=== PATIENT | male | born 1965 | race Caucasian/White ===

== ENCOUNTER → 2017-08-12 | Outpatient (CLI) | payer BC ==
[~2017-08-12] MED LIST: BENICAR20 MG PO; BYSTOLIC10 MG PO; CLARITIN10 MG PO; CYCLOBENZAPRINE5 MG PO; LEVOTHYROXINE25 MCG PO; PEPCID20 MG PO; TOPROL XL100 MG PO; ULTRAM50 MG PO; VASCEPA PO; Z.0.TOPROL XL50 MG
--- NOTE | 2017-08-12 14:04 | Diagnostic Imaging Report ---
PROCEDURE:CHEST 2 VIEWS TECHNIQUE:Renal carcinoma restaging INDICATION:PA and lateral views chest totaling 3 radiographs COMPARISON:None. FINDINGS: The lungs are clear and symmetrically inflated. No pleural effusions. Normal heart size, mediastinal contour, and pulmonary vasculature. Intact skeleton. No lytic or blastic lesions. CONCLUSION: No acute abnormality. Dictated by: Art Holden M.D. on 08/12/2017 at 14:07 Electronically approved by: Art Holden M.D. on 08/12/2017 at 14:07
--- NOTE | 2017-08-12 14:22 | Diagnostic Imaging Report ---
PROCEDURE:US RETROPERITONEAL ( KIDNEY ). COMPARISON:[facility], CT, CT ABDOMEN/PELVIS W, 12/19/2011, 19:25. INDICATIONS:Renal cancer follow. TECHNIQUE: Roberto scale color Doppler ultrasound kidneys FINDINGS: Right: 11.8 x 5.6 x 6 cm. Cortical thickness 1.7 cm. Left: 8.5 x 6 x 4.9 cm. Cortical thickness 1.8 cm. Both kidneys demonstrate normal parenchymal echogenicity. No conspicuous mass, stone or cyst within the right kidney. 2.4 x 1.6 x 1.6 cm nodule at the inferior medial aspect of the left kidney. This is isoechoic to adjacent kidney with minimal internal vasculature. Survey views of the urinary bladder are normal. Patent ureters. Prostate volume: 36 mL. CONCLUSION: Interval development of a 2.4 cm nodule at the inferior medial aspect of the left kidney. Renal protocol CT is recommended for characterization given left inferior partial nephrectomy for renal cell carcinoma. While this may represent chronic postoperative sequela it was not definitively conspicuous at the prior study. Dictated by: Art Holden M.D. on 08/12/2017 at 14:25 Electronically approved by: Art Holden M.D. on 08/12/2017 at 14:25
== END | disposition home or self-care (01) ==
LOC: US 13:00
PROVIDERS: ATTEND Urology
DX: C64.2 Malignant neoplasm of left kidney, except renal pelvis (principal); N28.89 Other specified disorders of kidney and ureter
CPT/HCPCS: 71046; 76770

== ENCOUNTER → 2017-08-21 | Outpatient (CLI) | payer BC ==
[~2017-08-21] MED LIST changes: +IOPAMIDOL 370 MG/ML 200 ML INFUS..BTL INJ ONE; +SODIUM CHLORIDE 0.9% 50ML 50 ML ONE
[2017-08-21 11:23] LABS: BLOOD UREA NITROGEN 19 mg/dL (7-26); BUN/CREATININE RATIO 16 (6-25); CREATININE, SERUM 1.16 mg/dL (0.72-1.25); EST GLOMERULAR FILTRATION RATE > 60 ML/MIN (60-)
--- NOTE | 2017-08-21 12:38 | Diagnostic Imaging Report ---
PROCEDURE: CT ABDOMEN \T\ PELVIS W/WO CONTRAST TECHNIQUE: The abdomen and pelvis were scanned utilizing a multidetector helical scanner from the diaphragm to the lesser trochanter before and after the IV administration of 100 cc of Isovue 370. Coronal and sagittal multiplanar reformations were obtained. Renal mass protocol was performed. COMPARISON: Renal ultrasound 08/12/2017, CT 09/15/2012 INDICATIONS: RENAL CANCER FINDINGS: LOWER THORAX: Normal. HEPATOBILIARY: Left hepatic 2 cm cyst. No focal hepatic lesions. No biliary ductal dilatation. SPLEEN: No splenomegaly. PANCREAS: No focal masses or ductal dilatation. ADRENALS: No adrenal nodules. KIDNEYS/URETERS: Partial left nephrectomy. A 1.9 cm lesion in the inferior pole in the left kidney (axial 5 minute delay, series 6 image 39; venous coronal series 502 image 82; delay coronal series 801 image 83) shows enhancement and washout. Lesion extends to the renal sinus fat. No evidence of extension to Gerota's fascia or renal vein involvement. Tiny hypodensity in the posterior superior pole of the right kidney is too small to characterize. No hydronephrosis or stones in either kidney. No filling defects within the opacified portions of the urinary collecting system on delayed phase. PELVIC ORGANS/BLADDER: Unremarkable. PERITONEUM / RETROPERITONEUM: No free air or fluid. LYMPH NODES: No lymphadenopathy. VESSELS: Mild atherosclerotic calcifications. No abdominal aortic aneurysm. Two right renal arteries. One left renal artery. GI TRACT: No distention or wall thickening. Small hiatal hernia. Few colonic diverticula without evidence of diverticulitis. BONES AND SOFT TISSUES: Postsurgical changes in the left flank related to partial nephrectomy. No aggressive osseous lesions. IMPRESSION: 1. Left inferior pole 1.9 cm lesion is concerning for renal cell carcinoma. 2. No evidence of metastatic disease in the abdomen and pelvis. Dictated by: Tramaine Stoner M.D. on 08/21/2017 at 12:40 Electronically approved by: Tramaine Stoner M.D. on 08/21/2017 at 12:40
== END ==
LOC: CT 10:38
PROVIDERS: ATTEND Urology
DX: C64.9 Malignant neoplasm of unspecified kidney, except renal pelvis (principal)
CPT/HCPCS: 36415; 74178; 82565; 84520; Q9967

== ENCOUNTER → 2018-01-20 | Outpatient (CLI) | payer BC ==
[~2018-01-20] MED LIST changes: +BACTRIM DS TAB1 EACH PO; +DIOVAN HCT 3201 EACH; +FENTANYL CITRATE/PF 100MCG/2 ML INJ ONE; +GELATIN SPONGE 12-7MM ONE; -IOPAMIDOL 370 MG/ML 200 ML INFUS..BTL INJ ONE; +LEVOTHYROXINE50 MCG PO; +LIDOCAINE HCL 1% LOCAL INJ 20 ML VIAL ONE; +MIDAZOLAM HCL 2 MG/2 ML VIAL ONE; +PENICILLIN VK PO; +SODIUM CHLORIDE 0.9% 500ML 500 ML ONE; -SODIUM CHLORIDE 0.9% 50ML 50 ML ONE; +TAMSULOSIN HCL0.4 MG; +TESTOSTERO200 MG/1 M; +TYLENOL WITH C1 EACH PO; +VASCEPA 1 GM PO
--- NOTE | 2018-01-20 13:39 | Diagnostic Imaging Report ---
This report includes an Addendum and supersedes previous reports for this exam. PROCEDURE: CT GUIDED NEEDLE PLACEMENT COMPARISON: [facility], CT, CT ABDOMEN/PELVIS WOW, 08/21/2017, 11:34. INDICATIONS: RENAL MASS BIOPSY LEFT; HX OF RENAL CELL CA MEDICATIONS:5 ml 1% lidocaine DLP: 2264.58 mGy-cm EBL: < 5 ml SPECIMEN: Given to pathology DESCRIPTION OF PROCEDURE: Informed consent was obtained. The patient's left back was prepped and draped in the standard sterile fashion. Multiple CT images were used to localize the abnormality. The skin was anesthetized with lidocaine. Using CT guidance, a 19 gauge 12 cm long guiding needle was placed to the edge of the lesion involving the lower pole of the left kidney. A single FNA utilizing a 20 gauge Chiba needle was accomplished and 4 core biopsies utilizing 20 gauge 1 cm throw core biopsy gun. Four more biopsies were performed utilizing 20 gauge 2 cm throw biopsy gun. The samples were given to pathology in attendance who deemed the specimens adequate. Prior to removal of the guiding needle Gelfoam slurry was injected to aid in hemostasis. The patient tolerated the procedure well without evidence of complication. CONCLUSION: Successful CT guided FNA and core biopsy of a left lower pole suspicious renal lesion performed without complication. Jacek Arnett D.O. Dictated by: Jacek Arnett D.O. on 01/20/2018 at 13:49 Electronically approved by: Jacek Arnett D.O. on 01/20/2018 at 13:49 ADDENDUM: Active dose reduction techniques were utilized. Jacek Arnett D.O. Dictated by: Jacek Arnett D.O. on 03/03/2018 at 10:24 Electronically approved by: Jacek Arnett D.O. on 03/03/2018 at 10:24
== END ==
LOC: CT 08:59
PROVIDERS: ATTEND Urology
DX: C64.2 Malignant neoplasm of left kidney, except renal pelvis (principal)
CPT/HCPCS: 10022; 50200; 77012; 88172; 88173; 88305; J2001; J2250; J7040; 88112; 99152; 99153

== ENCOUNTER 2018-02-03 13:40 | Inpatient (IN) | payer BC ==
[2018-01-31 16:32] LABS: BASOPHILS # (AUTO) 0.1 (0.0-0.1); EOSINOPHILS # (AUTO) 0.3 (0.0-0.4); EOSINOPHILS % 2.3 % (0.0-6.0); HEMATOCRIT 43.6 % (38.2-49.6); HEMOGLOBIN 14.4 g/dL (14.0-18.0); LYMPHOCYTES # (AUTO) 2.3 (1.0-3.2); LYMPHOCYTES % 21.2 % (18.0-39.1); MEAN CORPUSCULAR HEMOGLOBIN 27.5 pg (28-32); MEAN CORPUSCULAR VOLUME 83.4 fL (81-99); MONOCYTES # (AUTO) 0.9 (0.2-0.8); MONOCYTES % 7.9 % (4.4-11.3); NEUTROPHILS # (AUTO) 7.3 (2.1-6.9); NEUTROPHILS % 66.1 % (38.7-80.0); PLATELET COUNT 230 x10e3/uL (140-360); RED BLOOD COUNT 5.23 x10e6/uL (4.3-5.7); RED CELL DISTRIBUTION WIDTH 15.4 % (11.7-14.4)
[2018-01-31 16:47] LABS: ALANINE AMINOTRANSFERASE 28 IU/L (0-55); ALBUMIN 3.7 g/dL (3.5-5.0); ALBUMIN/GLOBULIN RATIO 0.9 (0.8-2.0); ALKALINE PHOSPHATASE 61 IU/L (40-150); ANION GAP 15.1 mmol/L (8-16); BLOOD UREA NITROGEN 14 mg/dL (7-26); BUN/CREATININE RATIO 14 (6-25); CALCIUM 9.8 mg/dL (8.4-10.2); CARBON DIOXIDE 24 mmol/L (22-29); CHLORIDE 101 mmol/L (98-107); CREATININE, SERUM 1.03 mg/dL (0.72-1.25); EST GLOMERULAR FILTRATION RATE > 60 ML/MIN (60-); GLUCOSE 103 mg/dL (74-118); POTASSIUM 4.1 mmol/L (3.5-5.1); SODIUM 136 mmol/L (136-145)
--- NOTE | 2018-01-31 16:48 | Diagnostic Imaging Report ---
EXAMINATION: CHEST 2 VIEWS COMPARISON: Chest radiograph 08/12/17. FINDINGS: TUBES and LINES: None. LUNGS: Lungs are well inflated. Lungs are clear. There is no evidence of pneumonia or pulmonary edema. PLEURA: No pleural effusion or pneumothorax. HEART AND MEDIASTINUM: The cardiomediastinal silhouette is unremarkable. BONES AND SOFT TISSUES: No acute osseous lesion. Soft tissues are unremarkable. UPPER ABDOMEN: No free air under the diaphragm. IMPRESSION: No acute radiographic abnormality. Signed by: Dr. Uvaldo Mortensen MD on 01/31/2018 4:44 PM
[~2018-02-03] VITALS: Ht 185.4 cm; Wt 147.4 kg
[~2018-02-03 13:40] MED LIST changes: -BACTRIM DS TAB1 EACH PO; -FENTANYL CITRATE/PF 100MCG/2 ML INJ ONE; -GELATIN SPONGE 12-7MM ONE; -LIDOCAINE HCL 1% LOCAL INJ 20 ML VIAL ONE; +MANNITOL 25% 12.5GM/50ML 50 ML ONE; -MIDAZOLAM HCL 2 MG/2 ML VIAL ONE; -PENICILLIN VK PO; -SODIUM CHLORIDE 0.9% 500ML 500 ML ONE; -TYLENOL WITH C1 EACH PO
--- OUTSIDE RECORDS SUMMARY | 2018-02-03 13:42 | XMS REPORT ---
Author Author [facility] Address Unknown Phone Unavailable Care Team Providers Care Hydrology Professor Name Role Phone BUCK OLIVA Unavailable Unavailable Problems This patient has no known problems. Allergies, Adverse Reactions, Alerts This patient has no known allergies or adverse reactions. Medications This patient has no known medications. Results Test Description Test Time Test Comments Text Results Atomic Results Result Comments CHEST 2 VIEWS 2018-01-31 16:42:00 [place] [address] Patient Name: RHODA JUARES MR #: [id number] : 1965 Age/Sex: 52/M Req #: [id number] Adm Physician: Ordered by: BUCK OLIVA MD Report #: [id number] Location: OR Room/Bed: Procedure: [id number] DX/CHEST 2 VIEWS Exam Date: 01/31/18 Exam Time: 1627 REPORT STATUS: Signed EXAMINATION: CHEST 2 VIEWS COMPARISON: Chest radio graph 08/12/17. FINDINGS: TUBES and LINES: None. LUNGS: Lungs are well inflated. Lungs are clear. There is no evidence of pneumonia or pulmonary edema. PLEURA: No pleural effusion or pneumothorax. HEART AND MEDIASTINUM: The cardiomediastinal silhouette is unremarkable. BONES AND SOFT TISSUES: No acute osseous lesion. Soft tissues are unremarkable. UPPER ABDOMEN: No free air under the diaphragm. IMPRESSION: No acute radiographic abnormality. Signed by: Dr. Skylar Young MD on 01/31/2018 4:44 PM Dictated By: SKYLAR YOUNG MD 43 Transcribed By: MNAUEL on 01/31/181643 COPY TO: BUCK OLIVA MD BIOPSY RENAL 2018-01-20 13:49:00 [place] [address] Patient Name: RHODA JUARES MR #: [id number] : 1965 Age/Sex: 52/M Req #: [id number] Adm Physician: Ordered by: BUCK OLIVA MD Report #: [id number] Location: CT Room/Bed: Procedure: [id number] IR/BIOPSY RENAL Exam Date: Exam Time: REPORT STATUS: Signed PROCEDURE: CT GUIDED NEEDLE PLACEMENT COMPARISON: [facility], CT, CT ABDOMEN/PELVIS WOW, 08/21/2017, 11:34. INDICATIONS: RENAL MASS BIOPSY LEFT; HX OF RENAL CELL CA MEDICATIONS: 5 ml 1% lidocaine DLP: 2264.58 mGy-cm EBL: < 5 ml SPECIMEN: Given to pathology DESCRIPTION OF PROCEDURE: Informed consent was obtained. The patient's left back was prepped and draped in the standard sterile fashion. Multiple CT images were used to localize the abnormality. The skin was anesthetized with lidocaine. Using CT guidance, a 19 gauge 12 cm long guiding needle was placed to the edge of the lesion involving the lower pole of the left kidney. A single FNA utilizing a 20 gauge Chiba needle was accomplished and 4 core biopsies utilizing 20 gauge 1 cm throw core biopsy gun. Four more biopsies were performed utilizing 20 gauge 2 cm throw biopsy gun. The samples were given to pathology in attendance who deemed the specimens adequate. Prior to removal of the guiding needle Gelfoam slurry was injected to aid in hemostasis. The patient tolerated the procedure well without evidence of complication. CONCLUSION: Successful CT guided FNA and core biopsy of a left lower pole suspicious renal lesion performed without complication. Lola Arnett D.O. Dictated by: Lola Arnett D.O. on 01/20/2018 at 13:49 Electronically approved by: Lola Arnett D.O. on 01/20/2018 at 13:49 Dictated By: LOLA ARNETT DO 1349 Transcribed By: JING on 01/20/18 1349 COPY TO: BUCK OLIVA MD CT GUIDED BIOPSY/ASPIR/INJ/BLADE 2018-01-20 13:49:00 [place] [address] Patient Name: RHODA JUARES MR #: [id number] : 1965 Age/Sex: 52/M Req #: [id number] Adm Physician: Ordered by: BUCK OLIVA MD Report #: [id number] Location: [place] Room/Bed: Procedure: [id number] CT/CT GUIDED BIOPSY/ASPIR/INJ/BLADE Exam Date: Exam Time: REPORT STATUS: Signed PROCEDURE: CT GUIDED NEEDLE PLACEMENT COMPARISON: [facility], CT, CT ABDOMEN/PELVIS WOW, 08/21/2017, 11:34. INDICATIONS: RENAL MASS BIOPSY LEFT; HX OF RENAL CELL CA MEDICATIONS: 5 ml 1% lidocaine DLP: 2264.58 mGy-cm EBL: < 5 ml SPECIMEN: Given to pathology DESCRIPTION OF PROCEDURE: Informed consent was obtained. The patient's left back was prepped and draped in the standard sterile fashion. Multiple CT images were used to localize the abnormality. The skin was anesthetized with lidocaine. Using CT guidance, a 19 gauge 12 cm long guiding needle was placed to the edge of the lesion involving the lower pole of the left kidney. A single FNA utilizing a 20 gauge Chiba needle was accomplished and 4 core biopsies utilizing 20 gauge 1 cm throw core biopsy gun. Four more biopsies were performed utilizing 20 gauge 2 cm throw biopsy gun. The samples were given to pathology in attendance who deemed the specimens adequate. Prior to removal of the guiding needle Gelfoam slurry was injected to aid in hemostasis. The patient tolerated the procedure well without evidence of complication. CONCLUSION: Successful CT guided FNA and core biopsy of a left lower pole suspicious renal lesion performed without complication. Lola Arnett D.O. Dictated by: Lola Arnett D.O. on 01/20/2018 at 13: 49 Electronically approved by: Lola Arnett D.O. on 01/20/2018 at 13:49 Dictated By: LOLA ARNETT DO 1349 Transcribed By: JING on 01/20/18 1349 COPY TO: BUCK OLIVA MD FNA WITH IMAGE GUIDANCE 2018-01-20 13:49:00 [place] [address] Patient Name: RHODA JUARES MR #: [id number] : 1965 Age/Sex: 52/M Req #: [id number] Adm Physician: Ordered by: BUCK OLIVA MD Report #: [id number] Location: CT Room/Bed: Procedure: [id number] IR/FNA WITH IMAGE GUIDANCE Exam Date: 01/20/18 Exam Time: 0900 REPORT STATUS: Signed PROCEDURE: CT GUIDED NEEDLE PLACEMENT COMPARISON: [facility], CT, CT ABDOMEN/PELVIS WOW, 08/21/2017, 11:34. INDICATIONS: RENAL MASS BIOPSY LEFT; HX OF RENAL CELL CA MEDICATIONS: 5 ml 1% lidocaine DLP: 2264.58 mGy-cm EBL: < 5 ml SPECIMEN: Given to pathology DESCRIPTION OF PROCEDURE: Informed consent was obtained. The patient's left back was prepped and draped in the standard sterile fashion. Multiple CT images were used to localize the abnormality. The skin was anesthetized with lidocaine. Using CT guidance, a 19 gauge 12 cm long guiding needle was placed to the edge of the lesion involving the lower pole of the left kidney. A single FNA utilizing a 20 gauge Chiba needle was accomplished and 4 core biopsies utilizing 20 gauge 1 cm throw core biopsy gun. Four more biopsies were performed utilizing 20 gauge 2 cm throw biopsy gun. The samples were given to pathology in attendance who deemed the specimens adequate. Prior to removal of the guiding needle Gelfoam slurry was injected to aid in hemostasis. The patient tolerated the procedure well without evidence of complication. CONCLUSION: Successful CT guided FNA and core biopsy of a left lower pole suspicious renal lesion performed without complication. Lola Arnett D.O. Dictated by: Lola Arnett D.O. on 01/20/2018 at 13:49 Electronically approved by: Lola Arnett D.O. on 01/20/2018 at 13:49 Dictated By: LOLA ARNETT DO 1349 Transcribed By: JING on 01/20/18 1349 COPY TO: BUCK OLIVA MD CT ABDOMEN/PELVIS WOW 2017-08-21 12:40:00 [place] [address] Patient Name: RHODA JUARES MR #: [id number] : 1965 Age/Sex: 52/M Req #: [id number] Adm Physician: Ordered by: BUCK OLIVA MD Report #: [id number] Location: [place] Room/Bed: Procedure: [id number] CT/CT ABDOMEN/PELVIS WOW Exam Date: 08/21/17 Exam Time: 1155 REPORT STATUS: Signed PROCEDURE: CT ABDOMEN T PELVIS W/WO CONTRAST TECHNIQUE: The abdomen and pelvis were scanned utilizing a multidetector helical scanner from the diaphragm to the lesser trochanter before and after the IV administration of 100 cc of Isovue 370. Coronal and sagittal multiplanar reformations were obtained. Renal mass protocol was performed. COMPARISON: Renal ultrasound 08/12/2017, CT 09/15/2012 INDICATIONS: RENAL CANCER FINDINGS: LOWER THORAX: Normal. HEPATOBILIARY: Left hepatic 2 cm cyst. No focal hepatic lesions. No biliary ductal dilatation. SPLEEN: No splenomegaly. PANCREAS: No focal masses or ductal dilatation. ADRENALS: No adrenal nodules. KIDNEYS/URETERS: Partial left nephrectomy. A 1.9 cm lesion in the inferior pole in the left kidney (axial 5 minute delay, series 6 image 39; venous coronal series 502 image 82; delay coronal series 801 image 83) shows enhancement and washout. Lesion extends to the renal sinus fat. No evidence of extension to Gerota's fascia or renal vein involvement. Tiny hypodensity in the posterior superior pole of the right kidney is too small to characterize. No hydronephrosis or stones in either kidney. No filling defects within the opacified portions of the urinary collecting system on delayed phase. PELVIC ORGANS/BLADDER: Unremarkable. PERITONEUM / RETROPERITONEUM: No free air or fluid. LYMPH NODES: No lymphadenopathy. VESSELS: Mild atherosclerotic calcifications. No abdominal aortic aneurysm. Two right renal arteries. One left renal artery. GI TRACT: No distention or wall thickening. Small hiatal hernia. Few colonic diverticula without evidence of diverticulitis. BONES AND SOFT TISSUES: Postsurgical changes in the left flank related to partial nephrectomy. No aggressive osseous lesions. IMPRESSION: 1. Left inferior pole 1.9 cm lesion is concerning for renal cell carcinoma. 2. No evidence of metastatic disease in the abdomen and pelvis. Dictated by: Tramaine Huerta M.D. on 08/21/2017 at 12:40 Electronically approved by: Tramaine Huerta M.D. on 08/21/2017 at 12:40 Dictated By: TRAMAINE HUERTA MD 1240 Transcribed By: JING on 08/21/17 1240 COPY TO: BUCK OLIVA MD US RENAL RETROPERITONEAL COMP 2017-08-12 14:25:00 [place] [address] Patient Name: RHODA JUARES MR #: [id number] : 1965 Age/Sex: 52/M Req #: [id number] [facility] Physician: Ordered by: BUCK OLIVA MD Report #: [id number] Location: US Room/Bed: Procedure: [id number] US/US RENAL RETROPERITONEAL COMP Exam Date: Exam Time: REPORT STATUS: Signed PROCEDURE: US RETROPERITONEAL ( KIDNEY ). COMPARISON: [facility], CT, CT ABDOMEN/PELVIS W, 12/19/2011, 19:25. INDICATIONS: Renal cancer follow. TECHNIQUE: Roberto scale color Doppler ultrasound kidneys FINDINGS: Right: 11.8 x 5.6 x 6 cm. Cortical thickness 1.7 cm. Left: 8.5 x 6 x 4.9 cm. Cortical thickness 1.8 cm. Both kidneys demonstrate normal parenchymal echogenicity. No conspicuous mass, stone or cyst within the right kidney. 2.4 x 1.6 x 1.6 cm nodule at the inferior medial aspect of the left kidney. This is isoechoic to adjacent kidney with minimal internal vasculature. Survey views of the urinary bladder are normal. Patent ureters. Prostate volume: 36 mL. CONCLUSION: Interval development of a 2.4 cm nodule at the inferior medial aspect of the left kidney. Renal protocol CT is recommended for characterization given left inferior partial nephrectomy for renal cell carcinoma. While this may represent chronic postoperative sequela it was not definitively conspicuous at the prior study. Dictated by: Bret Holden M.D. on 08/12/2017 at 14:25 Electronically approved by: Bret Holden M.D. on 08/12/2017 at 14:25 Dictated By: BRET HOLDEN MD 1425 Transcribed By: JING on 08/12/17 1425 COPY TO: BUCK OLIVA MD CHEST 2 VIEWS 2017-08-12 14:07:00 [place] [address] Patient Name: RHODA JUARES MR #: [id number] : 1965 Age/Sex: 52/M Req #: [id number] Adm Physician: Ordered by: BUCK OLIVA MD Report #: [id number] Location: Room/Bed: Procedure: [id number] DX/CHEST 2 VIEWS Exam Date: 08/12/17 Exam Time: 1340 REPORT STATUS: Signed PROCEDURE: CHEST 2 VIEWS TECHNIQUE: Renal carcinoma restaging INDICATION: PA and lateral views chest totaling 3 radiographs COMPARISON: None. FINDINGS: The lungs are clear and symmetrically inflated. No pleural effusions. Normal heart size, mediastinal contour, and pulmonary vasculature. Intact skeleton. No lytic or blastic lesions. CONCLUSION: No acute abnormality. Dictated by: Bret hogan M.D. on 08/12/2017 at 14:07 Electronically approved by: Bret Holden M.D. on 08/12/2017 at 14:07 Dictated By: BRET HOLDEN MD 140 Transcribed By: JING on 08/12/17 140 COPY TO: BUCK OLIVA MD
[2018-02-03] MEDS ORDERED: CEFAZOLIN SOD 2 GM/D5W 50ML 50 ML IV ONE (13:45)
[2018-02-03] MEDS ORDERED: HEPARIN SOD/SOD CHLORIDE 1,000 ML ONE (15:18)
[2018-02-03] MEDS ORDERED: MIDAZOLAM HCL 2 MG/2 ML VIAL ONE (15:29)
[2018-02-03] MEDS ORDERED: FENTANYL CITRATE/PF 100MCG/2 ML INJ ONE ×2 (15:29→18:51)
[2018-02-03] MEDS ORDERED: ROCURONIUM BROMIDE 10 MG/ML 5ML VIAL IV ONE (16:54)
[2018-02-03] MEDS ORDERED: ACETAMINOPHEN 1000 MG/100 ML 100 ML IV ONE (18:12)
[2018-02-03] MEDS ORDERED: NALOXONE HCL INJ 0.4 MG/ML AMP IV PRN (18:30)
[2018-02-03] MEDS ORDERED: DIPHENHYDRAMINE HCL INJ 50 MG/ML VIAL IM PRN (18:30)
[2018-02-03] MEDS: SODIUM CHLORIDE 0.9% 250ML IRRIG IR SCH ×2 (18:30→22:30)
[2018-02-03] MEDS ORDERED: ONDANSETRON HCL INJ 2 MG/ML VIAL IV PRN (18:30)
[2018-02-03] MEDS ORDERED: ACETAMINOPHEN 1000 MG/100 ML IV PRN (18:30)
[2018-02-03] MEDS ORDERED: HYDROMORPHONE 2MG/ML 2 MG/ML ML ONE (19:02)
[2018-02-03] MEDS ORDERED: MEPERIDINE HCL INJ 50 MG/ML INJ ONE ×2 (19:12→19:25)
[2018-02-03] MEDS ORDERED: MORPHINE SULFATE 1 MG/ML 30ML PCA ONE (19:26)
[2018-02-03] MEDS ORDERED: MORPHINE SULFATE INJ 4 MG/ML INJ ONE (19:37)
[2018-02-03] MEDS: MORPHINE SULFATE 1 MG/ML 30ML PCA IV PRN (19:43)
--- NOTE | 2018-02-03 19:56 | Diagnostic Imaging Report ---
EXAMINATION: CHEST SINGLE (PORTABLE) INDICATION: ^R/O PTX ^[id number] ^1900 COMPARISON: Chest radiograph 01/31/2018 FINDINGS: AP view TUBES and LINES: NG/OG tube appears to be infradiaphragmatic. Tip not included in the exam. Additional dense catheter overlying the thoracic spine appears to represent the EKG lead. LUNGS: Lungs are well inflated. Lungs are clear. Mild bilateral central pulmonary vascular congestion. PLEURA: No pleural effusion or pneumothorax. HEART AND MEDIASTINUM: The cardiomediastinal silhouette is unremarkable.. BONES AND SOFT TISSUES: No acute osseous lesion. Soft tissues are unremarkable. UPPER ABDOMEN: No free air under the diaphragm. IMPRESSION: NG/G tube. Distal catheter is not well visualized. Recommend repeat more penetrated chest radiograph or KUB including lower chest. No pneumothorax. Signed by: Dr. Italia Acevedo M.D. on 02/03/2018 7:53 PM
--- NOTE | 2018-02-03 19:57 | Diagnostic Imaging Report ---
EXAM: Abdomen 1 Views INDICATION: ^CHECK NG POSITION ^[id number] ^1900 COMPARISON: None FINDINGS: Distal NG/OG catheter overlying the distal esophagus. Left upper quadrant drain catheter. Multiple surgical clips throughout the left abdomen. Mild of stool in the colon. No dilated loops of small bowel. No renal calculi. No abnormal soft tissue masses. Mild degenerative changes in the lumbar spine and pelvis. IMPRESSION: NG/OG tube with tip overlying the distal esophagus. Recommend advancement. Signed by: Dr. Italia Acevedo M.D. on 02/03/2018 7:54 PM
[2018-02-03 21:00] VITALS: BP 131/74
--- NOTE | 2018-02-03 22:00 | NUR ---
Report received from OR nurse May. Patient admitted from OR by stretcher AT 2105. Patient received alert/oriented x3. Patient had continuing [employer] pump and continuing 2liters oxygen via nasal canula, SPo2 maintained 100%.V/S WNL. Patient had continuing Hudson catheter and surgical dressing on left lower abdomen, seemed intact and dry and NICOLE drain on left lower abdominal site. patient instructed to call for help as needed. Bed in lower position,locked. Call loo within reach.
--- NOTE | 2018-02-03 22:21 | Diagnostic Imaging Report ---
EXAM: ABDOMEN-1VIEW (KUB) DATE: 02/03/2018 9:42 PM INDICATION: NG tube placement COMPARISON: 02/03/2018 at 1909 hours FINDINGS: LINES/TUBES: Unchanged positioning of nasogastric tube with tip overlying the distal esophagus. Stable left upper quadrant drainage catheter. BOWEL PATTERN: No evidence for obstruction. SOFT TISSUES: No abnormal calcifications. No mass effect. Numerous surgical clips projecting over the left abdomen. LUNG BASES: Limited evaluation. BONES: No acute findings. IMPRESSION: Unchanged positioning of nasogastric tube with tip overlying the distal esophagus. Signed by: DR. Tramaine Stoner MD on 02/03/2018 10:18 PM
[2018-02-03 22:34] LABS: BASOPHILS % 0.2 % (0.0-1.0); EOSINOPHILS # (AUTO) 0.1 (0.0-0.4); EOSINOPHILS % 0.3 % (0.0-6.0); HEMATOCRIT 37.2 % (38.2-49.6); HEMOGLOBIN 12.4 g/dL (14.0-18.0); LYMPHOCYTES % 5.9 % (18.0-39.1); MEAN CORPUSCULAR HEMOGLOBIN 27.8 pg (28-32); MEAN CORPUSCULAR HGB CONC 33.3 g/dL (31-35); MEAN CORPUSCULAR VOLUME 83.4 fL (81-99); MONOCYTES # (AUTO) 1.1 (0.2-0.8); MONOCYTES % 6.5 % (4.4-11.3); NEUTROPHILS # (AUTO) 15.2 (2.1-6.9); NEUTROPHILS % 86.4 % (38.7-80.0); PLATELET COUNT 123 x10e3/uL (140-360); RED BLOOD COUNT 4.46 x10e6/uL (4.3-5.7); RED CELL DISTRIBUTION WIDTH 15.7 % (11.7-14.4)
[2018-02-03 22:49] LABS: ANION GAP 14.6 mmol/L (8-16); CALCIUM 8.6 mg/dL (8.4-10.2); CREATININE, SERUM 1.4 mg/dL (0.72-1.25); MAGNESIUM 1.7 MG/DL (1.3-2.1); POTASSIUM 3.6 mmol/L (3.5-5.1)
[2018-02-03] MEDS: D5.45%NS/KCL 20MEQ 1,000 ML IV SCH (23:15)
--- NOTE | 2018-02-03 23:15 | Operative Report ---
DATE OF PROCEDURE: February 03, 2018 PREOPERATIVE DIAGNOSIS: Recurrent left renal cell carcinoma. POSTOPERATIVE DIAGNOSES: 1. Recurrent left renal cell carcinoma. 2. Pedunculated skin lesion, left flank. OPERATIONS PERFORMED: 1. Excision of pedunculated skin lesion measuring 2 cm in length in the left flank (separate procedure performed for the skin lesion that was in the way of the dressing and the draping for our surgery). 2. Very complicated left radical nephrectomy. SUEDING AND BUFFING MACHINE OPERATOR: Dr. Krystal Wise MD COMPLICATIONS: None. ANESTHESIA: General. CLINICAL SUMMARY: Rhoda Foote is a 52-year-old man who over 6 years ago underwent left partial nephrectomy for renal cell carcinoma. At that point in time, the patient seemed to be free from disease for a number of years. Over the last year, the patient was noted to have a new nodule that formed in a different portion of the left kidney. The patient underwent biopsy of this new lesion that had come back and is consistent with renal cell carcinoma. The patient is brought to the operating room today for partial versus radical nephrectomy. He is aware of the risks of bleeding, infection, injury to adjacent structures, need for additional procedures, and elected to proceed. He is also aware of the risks of cancer recurrence. He is aware of the risks of potential dialysis should he not have adequate function of his remaining right kidney. He also understands that his will of course be a challenging surgery due to re-operation. OPERATIVE PROCEDURE IN DETAIL: Informed consent was verified. Rhoda Foote was properly identified, taken to the operating room, and placed on the operating table in supine position. Anesthesia was uneventfully begun. The patient was then carefully and gently repositioned in a flank position with all pressure points carefully well padded. He was secured to the table carefully. His abdomen, chest, and back were prepared and draped in usual sterile fashion. There was a very large pedunculated skin lesion that was in the proximity of our incision and would be in the way of our dressings as well as our draping. We therefore excised this as its base. Hemostasis was obtained with electrocautery and the skin was approximated with skin toribio. A left flank incision was then made through the existing scar. We dissected through the existing scar and it was impossible to perform an extraperitoneal approach due to the adherence and scarring in the region. We therefore carefully entered the peritoneum and very carefully dissected the colon away from the scarring that adhered it to the kidney. Rather meticulous dissection was carried out until the kidney was fully isolated. Review of the films as well as palpation during the case revealed that a partial nephrectomy was not an option in this case. Once, we had the kidney isolated to only the pedicle, the ureter was doubly ligated and divided. The pedicle was then ligated and divided. We utilized multiple silk suture ties in order to control the artery and the vein. Copious irrigation was performed. We verified hemostasis. A Richard drain was then placed through a separate stab incision, secured to the skin with a nylon suture. We copiously irrigated again, we verified hemostasis, and then the incision was approximated with heavy Vicryl suture in interrupted figure-of-8 fashion. The skin was approximated with skin toribio. Sterile dressings were applied, and patient was uneventfully reversed from anesthesia and taken to recovery room in stable condition. There were no complications to the procedure. Patient tolerated the procedure well. Sponge, needle, and instrument counts were quoted as correct x2 at the end of the case. Estimated blood loss was 300 mL. Will proceed with routine postoperative care and of course life-long urological followup. Job#: [id number] cc: RHODA RODRIGUEZ MD MTDD
[2018-02-04] VITALS (9 sets, daily range): BP systolic 93–146; BP diastolic 62–87
--- NOTE | 2018-02-04 00:33 | Diagnostic Imaging Report ---
EXAM: ABDOMEN-1VIEW (KUB) DATE: 02/03/2018 11:56 PM INDICATION: NG tube placement COMPARISON: 02/03/2018 at 2156 FINDINGS: LINES/TUBES: Nasogastric tube with tip and side port overlie the stomach. Stable left upper quadrant drainage catheter. BOWEL PATTERN: No evidence for obstruction. SOFT TISSUES: No abnormal calcifications. No mass effect. Numerous surgical clips projecting over the left abdomen. LUNG BASES: Grossly clear. BONES: No acute findings. IMPRESSION: Interval advancement of NG tube, currently the tip and side-port project below the GE junction. Signed by: DR. Tramaine Stoner MD on 02/04/2018 12:30 AM
[2018-02-04] MEDS: D5.45%NS/KCL 20MEQ 1,000 ML IV SCH ×2 (02:28→07:38)
[2018-02-04] MEDS: SODIUM CHLORIDE 0.9% 250ML IRRIG IR SCH ×2 (02:30→06:30)
--- NOTE | 2018-02-04 03:30 | NUR ---
Patient had shivering, BP:136/100, HR:148,Resp:30 and Temp:98.0 and Spo2: 99%. Assisted to covering with warm blankets and given IV Ofirmev 100mg/100ml as order. Will continue to monitor. Addendum: 02/04/18 at 0626 by Jessica Rudd RN wrong charting
[2018-02-04 05:02] LABS: RED BLOOD COUNT 4.39 x10e6/uL (4.3-5.7)
[2018-02-04 05:03] LABS: BASOPHILS % 0.1 % (0.0-1.0); HEMATOCRIT 36.4 % (38.2-49.6); HEMOGLOBIN 12.1 g/dL (14.0-18.0); LYMPHOCYTES # (AUTO) 1.2 (1.0-3.2); LYMPHOCYTES % 6.6 % (18.0-39.1); MEAN CORPUSCULAR HEMOGLOBIN 27.6 pg (28-32); MEAN CORPUSCULAR HGB CONC 33.2 g/dL (31-35); MEAN CORPUSCULAR VOLUME 82.9 fL (81-99); MONOCYTES # (AUTO) 1.6 (0.2-0.8); MONOCYTES % 8.6 % (4.4-11.3); NEUTROPHILS # (AUTO) 15.7 (2.1-6.9); PLATELET COUNT 135 x10e3/uL (140-360); RED CELL DISTRIBUTION WIDTH 15.8 % (11.7-14.4)
[2018-02-04 05:18] LABS: ANION GAP 14.6 mmol/L (8-16); CALCIUM 8.2 mg/dL (8.4-10.2); CREATININE, SERUM 1.3 mg/dL (0.72-1.25); POTASSIUM 3.6 mmol/L (3.5-5.1)
--- NOTE | 2018-02-04 06:21 | NUR ---
Called Dr Krueger about his consult.
--- NOTE | 2018-02-04 06:22 | NUR ---
Called Dr Krueger about consult. said he gonna see the patient during days.
[2018-02-04 06:53] LABS: BAND NEUTROPHILS % (MANUAL) 3 %; LYMPHOCYTES % (MANUAL) 6 % (19-48); MONOCYTES % (MANUAL) 12 % (3.4-9.0); NEUTROPHILS % (MANUAL) 79 % (40-74)
[2018-02-04 06:56] LABS: PLATELET ESTIMATE MODERATELY DECREASED; PLATELET MORPHOLOGY COMMENT NORMAL; RBC MORPHOLOGY COMMENT NORMAL
--- NOTE | 2018-02-04 06:56 | NUR ---
Report given to AM nurse,walking round done.
[2018-02-04] MEDS: MORPHINE SULFATE 1 MG/ML 30ML PCA IV PRN ×3 (07:01→08:34)
--- NOTE | 2018-02-04 09:11 | NUR ---
NGT removed per Dr Wise. ART line removed per shiva and pressure dressing applied.
--- NOTE | 2018-02-04 09:49 | NUR ---
patient OOB to chair, tolerated well. linens changed. family at bs.
[2018-02-04] MEDS: PANTOPRAZOLE 40 MG 10ML VIAL IV SCH (09:51)
[2018-02-04] MEDS: POTASSIUM CHLORIDE 20 MEQ in SODIUM CHLORIDE 0.9% 1000ML 1,000 ML IV SCH ×2 (09:54→19:30)
--- NOTE | 2018-02-04 13:40 | NUR ---
Visit made by the Spiritual Care Department Pastoral Visitor, Tanya Liao. Pt sleeping soundly and no family present. Pastoral Visitor left a card describing availability of loss prevention supervisor and instructions on how to contact a loss prevention supervisor. CAMMIE GÓMEZ Reroller Hand Spiritual Care Department O: [phone] Pager: [phone] ([phone] number calling from)
[2018-02-04] MEDS ORDERED: PROPOFOL IV EMULSION 10 MG/ML 20 ML VIAL ONE (14:56)
[2018-02-04] MEDS ORDERED: ACETAMINOPHEN 1000 MG/100 ML IV ONE (14:56)
[2018-02-04] MEDS ORDERED: ROCURONIUM BROMIDE 10 MG/ML 5ML VIAL ONE (14:56)
[2018-02-04] MEDS ORDERED: SUCCINYLCHOLINE 200 MG/10 ML SYR ONE (14:56)
[2018-02-04] MEDS ORDERED: LIDOCAINE HCL 2% LOCAL INJ 5 ML SDV VIAL INJ ONE (14:56)
[2018-02-04] MEDS ORDERED: DEXAMETHASONE SOD PHOS INJ 4 MG/ML VIAL ONE (14:56)
[2018-02-04] MEDS ORDERED: EPHEDRINE SULFATE INJ 50 MG/10 ML SYR ONE (14:56)
[2018-02-04] MEDS ORDERED: SEVOFLURANE INHAL SOLN 250 ML PEN BTL ONE (14:56)
[2018-02-04] MEDS ORDERED: PHENYLEPHRINE HCL 1% 10 MG/ML VIAL ONE (14:56)
[2018-02-04] MEDS ORDERED: ONDANSETRON HCL INJ 2 MG/ML VIAL ONE (14:56)
[2018-02-05] VITALS (7 sets, daily range): BP systolic 91–142; BP diastolic 67–96
[2018-02-05] MEDS: POTASSIUM CHLORIDE 20 MEQ in SODIUM CHLORIDE 0.9% 1000ML 1,000 ML IV SCH ×3 (04:00→14:25)
[2018-02-05 04:46] LABS: BASOPHILS % 0.3 % (0.0-1.0); EOSINOPHILS % 0.2 % (0.0-6.0); HEMATOCRIT 38.1 % (38.2-49.6); HEMOGLOBIN 12.3 g/dL (14.0-18.0); LYMPHOCYTES # (AUTO) 1.5 (1.0-3.2); LYMPHOCYTES % 12.6 % (18.0-39.1); MEAN CORPUSCULAR HEMOGLOBIN 27.9 pg (28-32); MEAN CORPUSCULAR HGB CONC 32.3 g/dL (31-35); MONOCYTES # (AUTO) 1.5 (0.2-0.8); MONOCYTES % 12.1 % (4.4-11.3); NEUTROPHILS # (AUTO) 8.9 (2.1-6.9); NEUTROPHILS % 74.4 % (38.7-80.0); PLATELET COUNT 177 x10e3/uL (140-360); RED BLOOD COUNT 4.41 x10e6/uL (4.3-5.7); RED CELL DISTRIBUTION WIDTH 16.2 % (11.7-14.4)
[2018-02-05 04:49] LABS: MEAN CORPUSCULAR VOLUME 86.4 fL (81-99)
[2018-02-05 05:13] LABS: ANION GAP 14.1 mmol/L (8-16); CALCIUM 8.5 mg/dL (8.4-10.2); CREATININE, SERUM 1.51 mg/dL (0.72-1.25); POTASSIUM 4.1 mmol/L (3.5-5.1)
[2018-02-05] MEDS: PANTOPRAZOLE 40 MG 10ML VIAL IV SCH (09:41)
--- NOTE | 2018-02-05 09:59 | NUR ---
Residential Worker to bedside to discuss plan of care with patient/family. CM/SW role and care transitions discussed. Anticipated discharge plan discussed along with duration of care. CM/SW discussed patients right to make decisions in care. CM/SW work hours given. Patient lives: PATIENT LIVES WITH BROTHER- EDEN JUARES IN [address] HERE IN [facility]. PATIENT STATES HE WILL DISCHARGE TO SISTER'S, DINA ROLDAN, [address] [place] IN [place]. Admit/Transfer: ED POA/Emergency contact: DINA ROLDAN [phone]; EDEN JUARES [phone] Current/Previous Home Health: NONE PCP/Follow-up Care: NONE Current/Previous DME: NONE Other Services: NONE Employment Status: EMPLOYED Areas of Concerns: NONE AT THIS TIME Referral Needs: NONE AT THIS TIME Education Needs: NONE AT THIS TIME IMM/BRANDON given and signed (if applicable): NO Goal for discharge: PATIENT TO DISCHARGE HOME, INDEPENDENT WITH NO NEEDS. PATIENT WAS INDEPENDENT PRIOR TO HOSPITALIZATION CM left business card at the bedside with contact information. Name and number was also written on the patients whiteboard. Patient verbalized understanding of discussion. CM will follow-up with ongoing discharge and transition of care needs.
[2018-02-05] MEDS ORDERED: MORPHINE SULFATE 5 MG/ML VIAL IV PRN (10:00)
[2018-02-05] MEDS: SENNOSIDES 8.6 MG TAB PO SCH ×2 (11:51→16:49)
[2018-02-05] MEDS: ONDANSETRON HCL INJ 2 MG/ML VIAL IV PRN ×2 (11:51→16:47)
[2018-02-05] MEDS: HYDROCODONE/APAP 10MG-325MG TAB PO PRN ×3 (11:52→23:02)
--- NOTE | 2018-02-05 20:00 | NUR ---
pt walking hallway. gait steady no distress noted. no co pain. will cont to follow poc.
--- NOTE | 2018-02-05 21:27 | NUR ---
pt walking hallway. gait steady no distress noted. no co pain.
--- NOTE | 2018-02-05 23:08 | NUR ---
pt back to bed. bedside monitor placed on pt. pt co left abd pain. discussed pain mngt poc. verbalized understanding. will medicate per orders. call loo within reach.
--- NOTE | 2018-02-05 23:45 | NUR ---
Arrived to rm 113 via stretcher. A&Ox3. Face flushed. Skin warm to touch. C/o 6/10 pain. Temp 102. Will f/u with for medication for fever. S/p left nephrectomy incision dry and intact with stables, dry to air. No drainage noted.
--- NOTE | 2018-02-05 23:52 | NUR ---
report given to nurse. pt transferred to rm [address] per orders. all belongings sent with pt. no distress noted upon transfer.
[2018-02-06] VITALS (7 sets, daily range): BP systolic 122–147; BP diastolic 61–69
--- NOTE | 2018-02-06 | NUR ---
Communicated with Dr. Krueger regarding elevated temp 102 oral. Pt facial flush. c/o 6/10 pain. Skin warm to touch. Ordered acetaminophen 650 mg PO every 4 hours.
[2018-02-06] MEDS: ACETAMINOPHEN 325 MG TAB PO PRN (00:31)
--- NOTE | 2018-02-06 01:01 | NUR ---
Fever decreased to 101. Pt A&Ox3. Pt warm and clammy to touch. Sitting up on couch. Denies SOB or dizziness. No vomiting or diarrhea noted. Hudson 16Fr draining blood tinged urine. Denies pain at Hudson site. C/o left lower back pain, s/p left nephrectomy. Will continue to monitor for s/s of infection.
[2018-02-06] MEDS: MORPHINE SULFATE INJ 4 MG/ML INJ IV PRN (02:30)
[2018-02-06 05:46] LABS: BASOPHILS % 0.3 % (0.0-1.0); EOSINOPHILS # (AUTO) 0.1 (0.0-0.4); EOSINOPHILS % 0.6 % (0.0-6.0); HEMATOCRIT 33.4 % (38.2-49.6); LYMPHOCYTES # (AUTO) 1.4 (1.0-3.2); LYMPHOCYTES % 12.1 % (18.0-39.1); MEAN CORPUSCULAR HEMOGLOBIN 28.1 pg (28-32); MEAN CORPUSCULAR HGB CONC 32.9 g/dL (31-35); MEAN CORPUSCULAR VOLUME 85.4 fL (81-99); MONOCYTES # (AUTO) 1.4 (0.2-0.8); MONOCYTES % 11.8 % (4.4-11.3); NEUTROPHILS # (AUTO) 8.6 (2.1-6.9); NEUTROPHILS % 74.6 % (38.7-80.0); PLATELET COUNT 163 x10e3/uL (140-360); RED BLOOD COUNT 3.91 x10e6/uL (4.3-5.7); RED CELL DISTRIBUTION WIDTH 15.6 % (11.7-14.4)
[2018-02-06 06:03] LABS: ANION GAP 13.7 mmol/L (8-16); CALCIUM 8.5 mg/dL (8.4-10.2); CREATININE, SERUM 1.29 mg/dL (0.72-1.25); POTASSIUM 3.7 mmol/L (3.5-5.1)
[2018-02-06] MEDS: SENNOSIDES 8.6 MG TAB PO SCH ×2 (09:30→17:45)
[2018-02-06] MEDS: PANTOPRAZOLE 40 MG 10ML VIAL IV SCH (09:30)
[2018-02-06] MEDS: DOCUSATE SODIUM 100 MG CAP PO SCH ×2 (09:30→17:45)
--- NOTE | 2018-02-06 09:40 | NUR ---
EVANS CATHETER AND NICOLE DRAIN REMOVED ORDERED. MODERATE AMOUNT OF DRAINAGE OBSERVED WHEN THE NICOLE DRAIN WAS REMOVED. PATIENT ASSISTED TO THE RESTROOM, SPONGE BATH WAS GIVEN AND HE'S NOW SITTING UP IN THE CHAIR IN THE ROOM. CALL LIGHT IN EASY REACH, INSTRUCTED TO CALL FOR ASSISTANCE NEEDED.
[2018-02-06] MEDS: HYDROCODONE/APAP 10MG-325MG TAB PO PRN (10:50)
--- NOTE | 2018-02-06 10:50 | NUR ---
PATIENT C/O PAIN TO THE LEFT FLANK, MEDICATED WITH NORCO 1TAB ORDERED. CALL LIGHT IN EASY REACH, INSTRUCTED TO CALL FOR ASSISTANCE UPON GETTING BACK TO THE BED.
--- NOTE | 2018-02-06 14:25 | NUR ---
PATIENT IS AMBULATING IN THE STEEL, FAMILY MEMBER IS WITH THE PATIENT AT THIS TIME.
--- NOTE | 2018-02-06 18:38 | NUR ---
PATIENT SITTING UP IN THE CHAIR, NO ACUTE DISTRESS OBSERVED. HE C/O PAIN TO THE ABDOMEN BUT HE WANTS TO WAIT TILL LATER ON HIS PAIN MEDICATION.
--- NOTE | 2018-02-06 19:30 | NUR ---
Completed rounds with morning nurse at bedside. Pt stable sitting on couch. Call loo within reach. Family at bedside.
[2018-02-06] MEDS: BACITRACIN ZINC 0.9GM TP SCH (20:30)
[2018-02-07] VITALS (7 sets, daily range): BP systolic 114–139; BP diastolic 62–85
[2018-02-07] MEDS: HYDROCODONE/APAP 10MG-325MG TAB PO PRN ×4 (05:00→23:55)
[2018-02-07 05:35] LABS: BASOPHILS % 0.4 % (0.0-1.0); EOSINOPHILS # (AUTO) 0.2 (0.0-0.4); EOSINOPHILS % 1.9 % (0.0-6.0); HEMATOCRIT 32.9 % (38.2-49.6); HEMOGLOBIN 10.9 g/dL (14.0-18.0); LYMPHOCYTES # (AUTO) 1.7 (1.0-3.2); LYMPHOCYTES % 15.9 % (18.0-39.1); MEAN CORPUSCULAR HEMOGLOBIN 28.2 pg (28-32); MEAN CORPUSCULAR HGB CONC 33.1 g/dL (31-35); MONOCYTES # (AUTO) 1.4 (0.2-0.8); MONOCYTES % 13.6 % (4.4-11.3); NEUTROPHILS # (AUTO) 7.1 (2.1-6.9); NEUTROPHILS % 67.5 % (38.7-80.0); PLATELET COUNT 163 x10e3/uL (140-360); RED BLOOD COUNT 3.87 x10e6/uL (4.3-5.7); RED CELL DISTRIBUTION WIDTH 15.3 % (11.7-14.4)
[2018-02-07 05:49] LABS: ANION GAP 14.2 mmol/L (8-16); BLOOD UREA NITROGEN 15 mg/dL (7-26); BUN/CREATININE RATIO 13 (6-25); CALCIUM 8.7 mg/dL (8.4-10.2); CARBON DIOXIDE 22 mmol/L (22-29); CHLORIDE 97 mmol/L (98-107); CREATININE, SERUM 1.13 mg/dL (0.72-1.25); EST GLOMERULAR FILTRATION RATE > 60 ML/MIN (60-); GLUCOSE 92 mg/dL (74-118); POTASSIUM 3.2 mmol/L (3.5-5.1); SODIUM 130 mmol/L (136-145)
[2018-02-07] MEDS: SENNOSIDES 8.6 MG TAB PO SCH ×2 (09:36→17:16)
[2018-02-07] MEDS: PANTOPRAZOLE 40 MG 10ML VIAL IV SCH (09:36)
[2018-02-07] MEDS: BACITRACIN ZINC 0.9GM TP SCH ×2 (09:36→17:16)
[2018-02-07] MEDS: DOCUSATE SODIUM 100 MG CAP PO SCH ×2 (09:36→17:16)
--- NOTE | 2018-02-07 09:36 | NUR ---
Upon assessment of the patient, I noticed large amount of pink, purulent drainage on bedsheets and patient's gown on left side of bed. Upon examination of the left sided incision, toribio are intact, it is open to air, redness is noted to area surrounding the incision on the posterior aspect. Drainage is new drainage. This drainage was not visible upon initial assessment at shift change. Patient states pain to be 5/10. Patient is not requesting any pain medication at this time. There is gauze with tape covering incision where NICOLE drain was previously removed. Old drainage is noted. No new drainage visible. I applied bacitracin per EMAR with one ABD pad to absorb any further drainage. Notified Dr. Wise.
[2018-02-07] MEDS ORDERED: AZTREONAM 1 GM/NS 50 ML 50 ML IV SCH ×2 (10:30→20:00)
[2018-02-07] MEDS ORDERED: VANCOMYCIN 1GM/NS 250 ML 250 ML IV SCH ×2 (10:30→12:00)
--- NOTE | 2018-02-07 15:44 | Consultation ---
DATE OF CONSULTATION: INFECTIOUS DISEASE CONSULTATION REASON FOR CONSULTATION: Abdominal wall cellulitis in a patient who is status post nephrectomy. HISTORY OF PRESENT ILLNESS: This is a patient who is a 52-year-old white male, history of obesity, history of left renal cell carcinoma, underwent a nephrectomy. The patient was admitted on January __. He underwent excision of a recurrent left renal cell cancer with pedunculated skin lesion on the left flank which was done by Dr. Wise. Patient has been in the hospital since then. He was found to have redness and swelling of the abdominal wall with drainage apparently when he was turned. There is copious amount of pus drained. Patient was started on vancomycin and Azactam. Infectious Disease was consulted. The patient is currently lying in bed comfortably. He has no complaints. The patient has history of obesity, renal cancer as mentioned above. ALLERGIES: NKA. SOCIAL HISTORY: There is no smoking, drug abuse or alcohol abuse. FAMILY HISTORY: Otherwise noncontributory. REVIEW OF SYSTEMS: HEENT: Negative. PULMONARY: Negative. CARDIAC: Negative. : Negative. SKIN: There is no rash at present time except the redness which he noted on the left side of the abdominal wall. LABORATORY DATA: Reviewed. Sodium 130. Potassium of 9.7. Creatinine 1.13, was 1.29. White count 10.5. PHYSICAL EXAMINATION: GENERAL: He is currently alert, oriented, does not seem to be in acute distress. Obese patient. HEENT: He does not appear icteric. NECK: Supple. CHEST: Clear. HEART: S1/S2. No S3, no S4, no murmur. ABDOMEN: Soft. Obese. IMPRESSION: Abdominal wall cellulitis, abscess. Agree with vancomycin. Will discontinue Azactam and will obtain CAT scan of the abdomen and pelvis. Will get a PICC line. He is obese patient and has had just recent surgery. Will follow lab with vancomycin trough. Will follow up with the cultures. Job#: [id number] JAY
--- NOTE | 2018-02-07 17:46 | Diagnostic Imaging Report ---
EXAM: CT Abdomen and Pelvis WITH contrast INDICATION: ^r/o abcess ^[id number] ^1652 COMPARISON: KUB 02/04/[address] abdomen and pelvis 09/15/2012 (report only) TECHNIQUE: Abdomen and pelvis were scanned utilizing a multidetector helical scanner from the lung base to the pubic symphysis after administration of IV contrast. Coronal and sagittal reformations were obtained. Routine protocol was performed. Scan was performed when during portal venous phase. IV CONTRAST: 75 mL of Isovue-370 ORAL CONTRAST: Water RADIATION DOSE: Total DLP: 1441.2 mGy*cm Estimated effective dose: (DLP x 0.015 x size factor) mSv COMPLICATIONS: None FINDINGS: LINES and TUBES: Left upper quadrant drain catheter has been removed. LOWER THORAX: Trace left pleural effusion. HEPATOBILIARY: 1.2 cm left lobe liver cyst, already described on remote CT abdomen pelvis. No new focal hepatic lesions. No biliary ductal dilation. GALLBLADDER: No radio-opaque stones or sludge. No wall thickening. SPLEEN: No splenomegaly. PANCREAS: No focal masses or ductal dilatation. ADRENALS: No adrenal nodules KIDNEYS/URETERS: Left nephrectomy. Mild fat stranding in the adjacent peritoneal fat. Postsurgical changes in the left abdomen includes extensive soft tissue density in the left subcutaneous fat at the level of the left renal fossa measuring 6.4 x 3.9 cm which extends into the lateral abdominal cavity and contains few foci of air. There is also diffuse inflammatory changes of the left abdominal wall muscles. No drainable fluid collections. The right kidney is unremarkable. No cystic or solid mass lesions. No stones. GI TRACT: No abnormal distention, wall thickening, or evidence of bowel obstruction. Appendix is no visualized. PELVIC ORGANS/BLADDER: Unremarkable. LYMPH NODES: No lymphadenopathy. VESSELS: Unremarkable. PERITONEUM / RETROPERITONEUM: No free air or fluid. BONES: Unremarkable. SOFT TISSUES: As above. [place] along the left lateral abdominal wall. IMPRESSION: Postsurgical changes along the left abdominal wall with associated large soft tissue density extending into the abdominal cavity which may represent hematoma and/or phlegmonous changes. No drainable fluid collections. Recommend short-term follow-up in 48 hours for evaluation of developing abscess. Signed by: Dr. Italia Acevedo M.D. on 02/07/2018 5:42 PM
--- NOTE | 2018-02-07 19:40 | NUR ---
ROUNDS DONE WITH MORNING RN.ROUNDS DONE WITH MORNING RN.PT IS SITTING ON THE CHAIR.NO PAIN VOICE .NO RESP.DISTRESS.ALLERTX3.FAMILY MEMBERS AT BED SIDE.INCISION SITE IS DRAINING .WOUND CULTURE SENT TO THE LAB.BED LOCKED AND IN LOWEST POSITION.PHONE AND CALL LIGHT WITHIN REACH.INSTRUCTED TO CALL FOR ASSISTANCE NEEDED.FREQUENT ROUNDING.
[2018-02-07] MEDS ORDERED: SODIUM CHLORIDE 0.9% 250ML 250 ML ONE (21:55)
[2018-02-07] MEDS ORDERED: CEFEPIME HCL 2 GM VIAL IV SCH (22:00)
[2018-02-07] MEDS: ACETAMINOPHEN 325 MG TAB PO PRN (22:17)
[2018-02-07] MEDS: CEFEPIME 2 GM/NS 0.9% 100 ML 100 ML IV SCH (22:17)
[2018-02-07] MEDS ORDERED: SODIUM CHLORIDE 0.9% 50ML 50 ML ONE (22:17)
[2018-02-07] MEDS ORDERED: IOPAMIDOL 370 MG/ML 200 ML INFUS..BTL INJ ONE (22:17)
[2018-02-08] VITALS: BP 126/72
[2018-02-08] MEDS ORDERED: VANCOMYCIN HCL 1.5 GM in SODIUM CHLORIDE 0.9% 250ML 300 ML IV SCH ×2
--- NOTE | 2018-02-08 00:20 | NUR ---
PAIN VOICED 08/04 .PAIN MEDICINE GIVEN.FREQUENT ROUNDS.
[2018-02-08 04:00] VITALS: BP 126/61
[2018-02-08] MEDS: CEFEPIME 2 GM/NS 0.9% 100 ML 100 ML IV SCH ×3 (05:39→22:23)
[2018-02-08 05:46] LABS: BASOPHILS # (AUTO) 0.1 (0.0-0.1); BASOPHILS % 0.9 % (0.0-1.0); EOSINOPHILS # (AUTO) 0.3 (0.0-0.4); EOSINOPHILS % 3.4 % (0.0-6.0); HEMATOCRIT 32.2 % (38.2-49.6); HEMOGLOBIN 10.8 g/dL (14.0-18.0); LYMPHOCYTES # (AUTO) 1.6 (1.0-3.2); MEAN CORPUSCULAR HEMOGLOBIN 28.2 pg (28-32); MEAN CORPUSCULAR HGB CONC 33.5 g/dL (31-35); MEAN CORPUSCULAR VOLUME 84.1 fL (81-99); MONOCYTES # (AUTO) 1.4 (0.2-0.8); MONOCYTES % 15.5 % (4.4-11.3); NEUTROPHILS # (AUTO) 5.2 (2.1-6.9); NEUTROPHILS % 60.4 % (38.7-80.0); PLATELET COUNT 182 x10e3/uL (140-360); RED BLOOD COUNT 3.83 x10e6/uL (4.3-5.7)
[2018-02-08 06:11] LABS: ANION GAP 14.6 mmol/L (8-16); BLOOD UREA NITROGEN 13 mg/dL (7-26); BUN/CREATININE RATIO 10 (6-25); CALCIUM 8.6 mg/dL (8.4-10.2); CARBON DIOXIDE 23 mmol/L (22-29); CHLORIDE 99 mmol/L (98-107); CREATININE, SERUM 1.24 mg/dL (0.72-1.25); EST GLOMERULAR FILTRATION RATE > 60 ML/MIN (60-); GLUCOSE 98 mg/dL (74-118); POTASSIUM 3.6 mmol/L (3.5-5.1); SODIUM 133 mmol/L (136-145)
[2018-02-08] MEDS: HYDROCODONE/APAP 10MG-325MG TAB PO PRN ×4 (08:20→23:48)
[2018-02-08] MEDS: DOCUSATE SODIUM 100 MG CAP PO SCH ×2 (09:02→17:57)
[2018-02-08] MEDS: SENNOSIDES 8.6 MG TAB PO SCH ×2 (09:02→17:58)
[2018-02-08 09:14] VITALS: BP 143/67
[2018-02-08] MEDS: BACITRACIN ZINC 0.9GM TP SCH (11:25)
--- NOTE | 2018-02-08 12:05 | NUR ---
Nutrition Screen Note RD Recommendation for Physician: Continue diet as ordered Plan of Care: RD following, monitoring for adequacy and tolerance Nutrition reason for involvement: LOS Primary Diagnose(s): left renal cancer Ht:73 in Wt:325lbs BMI:42.9 kg/m2 IBW:184lbs RD Assessment:(02/08/2018) Initial encounter with patient. Patient is eating well and denies any nausea, vomiting or diarrhea. No known food allergies. Current Diet: Regular diet Malnutrition Evaluation (02/08/2018) The patient does not meet criteria for a specified degree of malnutrition at this time. Will re-evaluate at follow-up as appropriate. Diet Education Needs Assessment: Diet education not indicated. Diet Adequacy: Meeting calorie needs, Meeting protein needs, Meeting fluid needs, Tolerance: Tolerating PO Nutrition Care Level: Manny Zamora RD, LD, [facility]
--- NOTE | 2018-02-08 12:28 | NUR ---
Met with nurse Fransisco ALONZO and pt in pt room. Pt is not home bound and is independent. He does not qualify for home health. Fransisco ALONZO stated she will teach family how to change dressing.
[2018-02-08 13:06] VITALS: BP 114/59
[2018-02-08] MEDS: VANCOMYCIN HCL 1.5 GM in SODIUM CHLORIDE 0.9% 250ML 300 ML IV SCH ×2 (13:08→21:30)
[2018-02-08 16:14] VITALS: BP 142/72
[2018-02-08 20:00] VITALS: BP_SYST 125; BP_SYST 126; BP_DIAS 65
--- NOTE | 2018-02-08 21:00 | NUR ---
ASSESSMENT DONE.NO RESP.DISTRESS.AMBULATES .VOIDED.DRESSING AND ABD.BINDER IS IN PLACE.NO PAIN VOICED.BED LOCKED AND IN LOWEST POSITION.PHONE AND CALL LIGHT WITHIN REACH.INSTRUCTED TO CALL FOR ASSISTANCE NEEDED.FREQUENT ROUNDS.
[2018-02-09] VITALS (8 sets, daily range): BP systolic 117–157; BP diastolic 58–89
[2018-02-09 05:06] LABS: BASOPHILS # (AUTO) 0.1 (0.0-0.1); BASOPHILS % 1.2 % (0.0-1.0); EOSINOPHILS # (AUTO) 0.4 (0.0-0.4); EOSINOPHILS % 4.7 % (0.0-6.0); HEMATOCRIT 32.7 % (38.2-49.6); HEMOGLOBIN 10.9 g/dL (14.0-18.0); LYMPHOCYTES # (AUTO) 1.6 (1.0-3.2); LYMPHOCYTES % 19.8 % (18.0-39.1); MEAN CORPUSCULAR HEMOGLOBIN 27.9 pg (28-32); MEAN CORPUSCULAR HGB CONC 33.3 g/dL (31-35); MEAN CORPUSCULAR VOLUME 83.8 fL (81-99); MONOCYTES # (AUTO) 1.3 (0.2-0.8); MONOCYTES % 15.6 % (4.4-11.3); NEUTROPHILS # (AUTO) 4.4 (2.1-6.9); NEUTROPHILS % 54.7 % (38.7-80.0); PLATELET COUNT 188 x10e3/uL (140-360); RED CELL DISTRIBUTION WIDTH 15.1 % (11.7-14.4)
[2018-02-09 05:26] LABS: ANION GAP 15.2 mmol/L (8-16); BLOOD UREA NITROGEN 11 mg/dL (7-26); BUN/CREATININE RATIO 11 (6-25); CALCIUM 8.6 mg/dL (8.4-10.2); CARBON DIOXIDE 22 mmol/L (22-29); CHLORIDE 101 mmol/L (98-107); CREATININE, SERUM 1.03 mg/dL (0.72-1.25); EST GLOMERULAR FILTRATION RATE > 60 ML/MIN (60-); GLUCOSE 95 mg/dL (74-118); POTASSIUM 3.2 mmol/L (3.5-5.1); SODIUM 135 mmol/L (136-145)
[2018-02-09] MEDS ORDERED: CEFEPIME HCL 2 GM VIAL ONE (05:41)
[2018-02-09] MEDS: CEFEPIME 2 GM/NS 0.9% 100 ML 100 ML IV SCH (06:08)
[2018-02-09] MEDS: HYDROCODONE/APAP 10MG-325MG TAB PO PRN ×4 (06:27→22:55)
--- NOTE | 2018-02-09 06:50 | NUR ---
REPORT GIVEN TO THE ONCOMING RN.WALKING ROUNDS DONE.STABLE CONDITION.
[2018-02-09 07:30] LABS: BAND NEUTROPHILS % (MANUAL) 4 %; EOSINOPHILS % (MANUAL) 5 % (0-7); LYMPHOCYTES % (MANUAL) 26 % (19-48); MONOCYTES % (MANUAL) 10 % (3.4-9.0); NEUTROPHILS % (MANUAL) 54 % (40-74); PLATELET MORPHOLOGY COMMENT NORMAL; RBC MORPHOLOGY COMMENT NORMAL
[2018-02-09 07:31] LABS: PLATELET ESTIMATE ADEQUATE
[2018-02-09] MEDS: DOCUSATE SODIUM 100 MG CAP PO SCH ×2 (09:02→18:00)
[2018-02-09] MEDS: SENNOSIDES 8.6 MG TAB PO SCH ×2 (09:02→18:00)
--- NOTE | 2018-02-09 09:02 | NUR ---
Patient's Right AC PIV line is leaking. Will attempt new IV access.
[2018-02-09] MEDS ORDERED: POTASSIUM CHLORIDE 10MEQ EA PO ONE (13:00)
--- NOTE | 2018-02-09 16:29 | Diagnostic Imaging Report ---
EXAMINATION: CHEST XRAY LINE PLACEMENT INDICATION: ^Verify PICC placement ^[id number] ^1600 COMPARISON: Chest radiograph 02/03/2018 FINDINGS: AP view TUBES and LINES: The NG/OG tube has been removed. Interval placement of a right PICC with tip overlying the mid SVC. LUNGS: Lungs are well inflated. Bilateral interstitial edema. Minimal atelectasis in both lung bases. PLEURA: No pleural effusion or pneumothorax. HEART AND MEDIASTINUM: Stable cardiomegaly. BONES AND SOFT TISSUES: No acute osseous lesion. Soft tissues are unremarkable. UPPER ABDOMEN: No free air under the diaphragm. IMPRESSION: Interval placement of a right PICC with tip overlying the mid SVC. No pneumothorax. Persistent bilateral interstitial edema. Signed by: Dr. Italia Acevedo M.D. on 02/09/2018 4:25 PM
[2018-02-09] MEDS: VANCOMYCIN HCL 1.5 GM in SODIUM CHLORIDE 0.9% 250ML 300 ML IV SCH (18:00)
[2018-02-09] MEDS ORDERED: CEFEPIME 2 GM/NS 0.9% 100 ML 100 ML IV SCH (19:00)
--- NOTE | 2018-02-09 22:55 | NUR ---
patient showered, drsg change performed. patient tolerated well.
[2018-02-10] VITALS (9 sets, daily range): BP systolic 122–160; BP diastolic 67–79
[2018-02-10] MEDS: CEFEPIME 2 GM/NS 0.9% 100 ML 100 ML IV SCH ×4 (04:57→23:15)
[2018-02-10] MEDS: VANCOMYCIN HCL 1.5 GM in SODIUM CHLORIDE 0.9% 250ML 300 ML IV SCH ×2 (05:00→11:30)
[2018-02-10 05:26] LABS: BASOPHILS # (AUTO) 0.1 (0.0-0.1); BASOPHILS % 0.9 % (0.0-1.0); EOSINOPHILS # (AUTO) 0.3 (0.0-0.4); EOSINOPHILS % 3.8 % (0.0-6.0); HEMATOCRIT 30.4 % (38.2-49.6); HEMOGLOBIN 10.1 g/dL (14.0-18.0); LYMPHOCYTES # (AUTO) 1.6 (1.0-3.2); LYMPHOCYTES % 19.5 % (18.0-39.1); MEAN CORPUSCULAR HEMOGLOBIN 27.8 pg (28-32); MEAN CORPUSCULAR HGB CONC 33.2 g/dL (31-35); MEAN CORPUSCULAR VOLUME 83.7 fL (81-99); MONOCYTES # (AUTO) 1.3 (0.2-0.8); MONOCYTES % 16.1 % (4.4-11.3); NEUTROPHILS # (AUTO) 4.4 (2.1-6.9); PLATELET COUNT 216 x10e3/uL (140-360); RED BLOOD COUNT 3.63 x10e6/uL (4.3-5.7); RED CELL DISTRIBUTION WIDTH 15.1 % (11.7-14.4)
[2018-02-10 05:41] LABS: ANION GAP 13.5 mmol/L (8-16); BLOOD UREA NITROGEN 12 mg/dL (7-26); BUN/CREATININE RATIO 11 (6-25); CALCIUM 8.3 mg/dL (8.4-10.2); CARBON DIOXIDE 24 mmol/L (22-29); CHLORIDE 102 mmol/L (98-107); CREATININE, SERUM 1.06 mg/dL (0.72-1.25); EST GLOMERULAR FILTRATION RATE > 60 ML/MIN (60-); GLUCOSE 101 mg/dL (74-118); POTASSIUM 3.5 mmol/L (3.5-5.1); SODIUM 136 mmol/L (136-145)
[2018-02-10] MEDS: HYDROCODONE/APAP 10MG-325MG TAB PO PRN ×4 (05:52→21:15)
--- NOTE | 2018-02-10 06:00 | NUR ---
called placed to admitting MD regarding critical vanc. trough, stated "call the doctor who ordered it". call placed with Dr. Zamudio answering service, awaiting call back. Vancomycin scheduled for 0500 delayed, due to call back.
--- NOTE | 2018-02-10 09:00 | NUR ---
SPOKE WITH MD PAREDES, MADE AWARE OF CURRENT TROUGH 13.5, OKAY TO GIVE VANC,
--- NOTE | 2018-02-10 09:22 | NUR ---
THU NUNEZ WITH MD PAREDES INTO SEE PT, DISCUSSED POC, OKAYED TO GIVE VANCO ORDERED,
[2018-02-10] MEDS: DOCUSATE SODIUM 100 MG CAP PO SCH ×2 (09:29→21:15)
[2018-02-10] MEDS: SENNOSIDES 8.6 MG TAB PO SCH ×2 (09:30→21:15)
[2018-02-10] MEDS ORDERED: SODIUM CHLORIDE 0.9% 250ML 250 ML ONE (11:24)
--- NOTE | 2018-02-10 12:06 | NUR ---
SITTING ON BS COUCH, C/O 6/10 LEFT FLANK PAIN, MEDICATED PER MD ORDER FOR PAIN, EDUCATED TO NOT GET UP WITHOUT CALLING FOR ASSISTANCE, PT VERBALIZED UNDERSTANDING, CALL LIGHT WITHIN REACH, FAMILY AT SIDE
--- NOTE | 2018-02-10 14:47 | NUR ---
WHEELED OFF UNIT VIA WC FOR CXR, NO CHANGE IN CONDITION
--- NOTE | 2018-02-10 15:06 | Diagnostic Imaging Report ---
EXAM: XR CHEST 1 VIEW DATE: 02/10/2018 6:42 AM INDICATION: Fever COMPARISON: None FINDINGS: Lines and Tubes: Right PICC tip overlying SVC. Heart and Mediastinum: Heart upper limits of normal. Lungs and Pleura: Patchy basilar opacities, asymmetric to the left. Bones and Soft Tissues: No acute findings. IMPRESSION: 1. Basilar atelectasis versus pneumonia. Signed by: Dr. Marcel Ford MD on 02/10/2018 3:02 PM
--- NOTE | 2018-02-10 15:10 | NUR ---
BACK IN ROOM , SITTING ON BS COUCH
--- NOTE | 2018-02-10 17:30 | NUR ---
DRESSING REMOVED, NEW WET TO DRY APPLIED PER MD ORDER, PT TOLERATED WELL
--- NOTE | 2018-02-10 19:17 | NUR ---
WALKING ROUNDS PERFORMED, RECEIVED PT SITTING ON COUCH, AAOX3, RR EVEN AND NON-LABORED, ON RA. NO S/SX OF DISTRESS NOTED. DRESSING TO ANTERIOR ABD NOTED TO BE CDI, SECURED WITH ABDOMINAL BINDER. LEFT PT SITTING ON COUCH IN ROOM, CALL LIGHT WITHIN REACH.
--- NOTE | 2018-02-10 20:00 | NUR ---
PT AMBULATING IN STEEL WITHOUT ASSISTANCE, STEADY GAIT NOTED.
[2018-02-10] MEDS ORDERED: VANCOMYCIN HCL 1.5 GM in SODIUM CHLORIDE 0.9% 250ML 300 ML IV SCH (23:00)
[2018-02-11] VITALS (7 sets, daily range): BP systolic 131–175; BP diastolic 60–83
[2018-02-11] MEDS: HYDROCODONE/APAP 10MG-325MG TAB PO PRN ×4 (02:58→19:54)
--- NOTE | 2018-02-11 03:22 | NUR ---
PT AMBULATING IN STEEL WITHOUT ASSISTANCE, STEADY GAIT NOTED.
[2018-02-11] MEDS: VANCOMYCIN HCL 1.5 GM in SODIUM CHLORIDE 0.9% 250ML 300 ML IV SCH ×2 (04:08→16:05)
--- NOTE | 2018-02-11 06:20 | NUR ---
DRESSING TO (L) FLANK CHANGED, APPLIED WET KERLIX TO WOUND, DRY 4X4 AND COVERED WITH ABDOMINAL BINDERS AND SECURED WITH ABDOMINAL BINDER.
[2018-02-11] MEDS: CEFEPIME 2 GM/NS 0.9% 100 ML 100 ML IV SCH ×3 (06:45→21:26)
--- NOTE | 2018-02-11 07:30 | NUR ---
MD OLIVA INTO SEE PT, DISCUSSED POC, MD HAZEL FERRER'S PT TO BE DISCHARGED WITH HH WITH DRESSING'S BID
--- NOTE | 2018-02-11 09:00 | NUR ---
MD RODRIGUEZ INTO SEE PT, DISCUSSED POC, MADE MD RODRIGUEZ AWARE THAT MD OLIVA HAS OKAYED DC HOME, MD RODRIGUEZ STATES MD PAEZ IS TO SEE PT FOR POSSIBLE WOUND VAC AND MD PAREDES TO DECIDE IF PT NEEDS IV ANTIBIOTICS,
[2018-02-11] MEDS: DOCUSATE SODIUM 100 MG CAP PO SCH ×2 (09:45→21:18)
[2018-02-11] MEDS: SENNOSIDES 8.6 MG TAB PO SCH ×2 (09:45→21:18)
--- NOTE | 2018-02-11 13:26 | NUR ---
PT C/O "CRAMPING, PULLING FEELING " INTERMITTENTLY FOR TO LEFT SIDE UNDER INCISION DOWN TO GROIN AREA, TELEPHONED MD RODRIGUEZ TO MAKE AWARE, AWAITING CALL BACK
--- NOTE | 2018-02-11 13:45 | NUR ---
SPOKE WITH MD RODRIGUEZ, ORDERS TO MONITOR PT
--- NOTE | 2018-02-11 14:38 | NUR ---
SITTING ON BS COUCH, C/O 6/10 LEFT SIDE PAIN, MEDICATED PER MD ORDER, EDUCATED TO NOT GET UP WITHOUT CALLING FOR ASSISTANCE, PT VERBALIZED UNDERSTANDING, CALL LIGHT WITHIN REACH, ALL SOURCE ANALYST TELEPHONED MD PAEZ AGAIN FOR CONSULT, AWAITING CALL BACK
--- NOTE | 2018-02-11 18:22 | NUR ---
LEFT SIDE DRESSING REMOVED, MD PAEZ INTO SEE PT, ORDERS NOTED, WOUND CLEANSED, WET TO DRY APPLIED, SECURED WITH BINDER, PT TOLERATED WELL
[2018-02-11] MEDS: DIPHENHYDRAMINE HCL 25 MG CAP PO ONE ×2 (18:45→18:52)
--- NOTE | 2018-02-11 18:55 | NUR ---
SPOKE WITH MD RODRIGUEZ, MADE AWARE THAT PT "GETS ALLERGIC REACTION TO FOOD AND SOME MOVEMENTS" INTERMITTENTLY, PT NOW HAS ITCHY RED WHELPS , MEDICATED PER MD ORDER
[2018-02-11] MEDS ORDERED: DIPHENHYDRAMINE HCL 25 MG CAP PO ONE (19:00)
--- NOTE | 2018-02-11 19:09 | NUR ---
WALKING ROUNDS PERFORMED, RECEIVED PT SITTING ON COUCH, AAOX3, RR EVEN AND NON-LABORED, ON RA. PT REPORTS PAIN TO (L) FLANK. DRESSING CDI. LEFT PT SITTING ON COUCH, CALL LIGHT WITHIN REACH.
--- NOTE | 2018-02-11 19:45 | Consultation ---
DATE OF CONSULTATION: WOUND CONSULTATION Thank you, Dr. Krueger, for asking me to see this patient with postsurgical wound to the left flank. HISTORY OF PRESENT ILLNESS: A 53-year-old male patient, had a partial nephrectomy for recurrent kidney cancer. Now, he had surgery again due to the recurrence of tumors and he had a left nephrectomy. Patient had a postsurgical wound. He had debridement and drainage. Wound culture was growing enterococcus gram-negative rods. Patient is on IV antibiotics cefepime. Wound consult was called. Patient is obese. He has no other comorbid condition. Wound localized to the left flank. Patient has a large wound on the left anterior and left lateral side of the abdomen. Wound bed has some slough mostly granulated wound margin attached to base. ASSESSMENT: Postsurgical wound on the left flank following left nephrectomy for renal cell cancer. Patient also has some contact dermatitis on the tip. PLAN: Will apply Dakin moistened Kerlix to the wound for 10 minutes followed by application of Adaptic black foam to KCI wound VAC at 150. Continue with negative pressure. Apply triamcinolone 0.1% cream to the skin area for contact dermatitis of the tip. To be changed Saturday, Saturday, Saturday. Home health to be arranged for wound VAC at home. Thank you, Dr. Krueger, for asking me to see this patient. Job#: [id number] CQ
--- NOTE | 2018-02-11 22:06 | NUR ---
PAGE PLACED FOR MD PAREDES TO REQUEST VANC TROUGH BEFORE 4TH DOSE. WAITING FOR CALLBACK.
[2018-02-12] VITALS: BP 144/70
[2018-02-12] MEDS: ONDANSETRON HCL INJ 2 MG/ML VIAL IV PRN (03:42)
[2018-02-12] MEDS: VANCOMYCIN HCL 1.5 GM in SODIUM CHLORIDE 0.9% 250ML 300 ML IV SCH (03:42)
[2018-02-12] MEDS: MORPHINE SULFATE INJ 4 MG/ML INJ IV PRN (03:42)
[2018-02-12 04:00] VITALS: BP 133/60
[2018-02-12] MEDS: CEFEPIME 2 GM/NS 0.9% 100 ML 100 ML IV SCH (06:08)
--- NOTE | 2018-02-12 06:09 | NUR ---
PT REPORTS HE WILL BE GETTING A WOUND VAC PLACED TODAY AND DOES NOT WANT HIS DRESSING CHANGED AT THIS TIME.
[2018-02-12] MEDS: HYDROCODONE/APAP 10MG-325MG TAB PO PRN (06:10)
[2018-02-12 07:47] LABS: BASOPHILS # (AUTO) 0.1 (0.0-0.1); BASOPHILS % 1.2 % (0.0-1.0); EOSINOPHILS # (AUTO) 0.4 (0.0-0.4); EOSINOPHILS % 3.9 % (0.0-6.0); HEMATOCRIT 31.2 % (38.2-49.6); HEMOGLOBIN 10.2 g/dL (14.0-18.0); MEAN CORPUSCULAR HEMOGLOBIN 27.5 pg (28-32); MEAN CORPUSCULAR HGB CONC 32.7 g/dL (31-35); MEAN CORPUSCULAR VOLUME 84.1 fL (81-99); MONOCYTES # (AUTO) 1.5 (0.2-0.8); NEUTROPHILS # (AUTO) 4.4 (2.1-6.9); NEUTROPHILS % 48.5 % (38.7-80.0); PLATELET COUNT 286 x10e3/uL (140-360); RED BLOOD COUNT 3.71 x10e6/uL (4.3-5.7); RED CELL DISTRIBUTION WIDTH 15.4 % (11.7-14.4)
[2018-02-12 08:37] VITALS: BP 143/63
[2018-02-12 08:39] LABS: ANION GAP 13.9 mmol/L (8-16); BLOOD UREA NITROGEN 13 mg/dL (7-26); BUN/CREATININE RATIO 11 (6-25); CALCIUM 8.5 mg/dL (8.4-10.2); CARBON DIOXIDE 23 mmol/L (22-29); CHLORIDE 100 mmol/L (98-107); CREATININE, SERUM 1.14 mg/dL (0.72-1.25); EST GLOMERULAR FILTRATION RATE > 60 ML/MIN (60-); GLUCOSE 106 mg/dL (74-118); POTASSIUM 3.9 mmol/L (3.5-5.1); SODIUM 133 mmol/L (136-145)
[2018-02-12] MEDS ORDERED: TRIAMCINOLONE ACET 0.1% CREAM 15 GM TUBE TOP SCH (09:00)
--- NOTE | 2018-02-12 09:02 | NUR ---
spoke with md vasquez regarding pt scheduled wound vac. states to cancel wound vac placement. teach pt education about dressing wet to dry and pt will be going home on po abx not iv. md vasquez ordered to verify po abx. spoke with md elder states we will be writing prescriptions when rounding (po). md vasquez states ok to dc after this. orders received
[2018-02-12 10:18] VITALS: BP 143/63
[2018-02-12] MEDS: DOCUSATE SODIUM 100 MG CAP PO SCH (10:21)
[2018-02-12] MEDS: SENNOSIDES 8.6 MG TAB PO SCH (10:21)
--- NOTE | 2018-02-12 11:13 | NUR ---
DC PLANNING NOTE: PT DISCHARGING TODAY PT GOING TO STAY WITH HIS SISTER AND BROTHER IN LAW SISTER DINA GARZA [phone] ADDRESS: [address] [place] [address] CONFIRMED PT'S CELL PHONE NUMBER CORRECT AT [phone] ORDERS FOR HOME HEALTH CARE FOR DRESSING CHANGED SUPERVISION/EDUCATION LIST OF IN NETWORK FACILITIES GIVEN TO PT AND BROTHER IN LAW PT CHOSE [facility] STAFF PH: [phone] FAX: [phone] CHOICE LETTER SIGNED AND ON CHART COPY TO PT IN HIS CARE TRANSITION FOLDER ALONG WITH MY BUSINESS CARD CLINICAL INFORMATION FAXED TO [facility]; CONFIRMATION REC'D SPOKE WITH GETACHEW AT [facility] WHO CONFIRMS THEY ARE IN NETWORK WITH BC/BS [place] PT'S SISTER AND DTR IN LAW HAVE OBSERVED NURSING DOING DRESSING CHANGES BUT HAVE NOT ACTUALLY DONE DRESSING THEMSELVES THEY FEEL CONFIDENT THEY CAN DO DRESSINGS OBSERVED NURSE MEHNAZ WILL PROVIDE PT AND FAMILY WITH WRITTEN DRESSING CHANGE INFORMATION
--- NOTE | 2018-02-12 11:34 | NUR ---
SPOKE WITH MEDICAL PARASITOLOGIST ANIA REGARDING ABX FOR HOME . MEDICAL PARASITOLOGIST STATES HE SPOKE WITH MD PAREDES AND IS AWARE OF [facility] ABX PRESCRIPTIONS ALREADY WRITTEN. PT WILL BE GOING HOME WITH ORAL ABX WRITTEN BY MD OLIVA. WILL DC PICC LINE AND TEACH WOUND CARE AT THIS TIME.
--- NOTE | 2018-02-12 11:36 | NUR ---
SPOKE WITH CM. HH IS NOW SET UP
[2018-02-12] MEDS ORDERED: BACTRIM DS TAB1 EACH PO (11:40)
[2018-02-12] MEDS ORDERED: TYLENOL WITH C1 EACH PO (11:40)
[2018-02-12] MEDS ORDERED: PENICILLIN VK PO (11:40)
[2018-02-12 11:57] VITALS: BP 141/74
--- NOTE | 2018-02-12 12:26 | NUR ---
DISCHARGE INSTRUCTIONS AND PRESCRIPTIONS GIVEN. PT VERBALIZED UNDERSTANDING. PICC LINE DC PRESSURE DRESSING APPLIED AND TAPED INSTRUCTIONS ON WOUND CARE GIVEN. PT AND FAMILY VERBALIZED UNDERSTANDING
--- NOTE | 2018-02-12 12:46 | NUR ---
pt is now off unit via wheel chair to home
--- NOTE | 2018-02-12 16:54 | NUR ---
4 PM CM REC'D PHONE CALL FROM MARTINEZ AT [facility] WHO STATES THEY RAN PT'S BENEFITS AND DISCOVERED PT IS [facility] AND THEY CANNOT SERVICE PT CM CALLED AND SPOKE WITH [facility] CM [phone] KERRIE LAUREANO WHO STATES SHE DOES NOT KNOW WHICH HOME HEALTH CAN SERVICE THIS PT FOR DRESSING CHANGES SUGGEST THAT I CALL HER MANAGING COGNITIVE ENGINEER LARRY AT [phone] I CALLED LARRY AND LEFT HER V.M ASKING HER TO RETURN MY CALL [facility] REF # [id number] I ALSO CALLED THE FOLLOWING COMPANIES WHO CANNOT ACCEPT [facility]: [facility], [facility], [facility] CALL PLACED TO PT TO NOTIFY HIM OF SITUATION; NO ANSWER LEFT VOICE MAIL AND ASKED HIM TO CALL ME BACK FORTUNATELY PT IS STAYING WITH HIS SISTER AND BROTHER IN LAW WHO FEEL CONFIDENT REGARDING DRESSING CHANGES CM WILL F/U IN AM
--- NOTE | 2018-02-13 08:40 | NUR ---
CM CALLED PT THIS AM TO LET HIM KNOW I AM STILL TRYING TO ARRANGE HOME HEALTH FOR DRESSING CHANGES. HE STATES HE UNDERSTANDS AND THAT HIS SISTER AND BROTHER IN LAW HAVE CHANGED DRESSING LAST NIGHT AND AGAIN THIS MORNING AND FEEL COMPETENT DOING SO. HE STATES HE DOES NOT NEED HOME HEALTH DR OLIVA AWARE
== END 2018-02-12 12:46 | disposition home health service (06) | DRG 657 ==
LOC: OR 13:40 → IMCU 21:35 → MED/SURG 02-05 23:54
PROVIDERS: ADMIT Internal Medicine; ATTEND Internal Medicine
PROC: 0JBC0ZZ Excision of Pelvic Region Subcutaneous Tissue and Fascia, Open Approach (ICD-10-PCS; 2018-02-03)
PROC: 0TB10ZZ Excision of Left Kidney, Open Approach (ICD-10-PCS; principal; 2018-02-03 15:00)
PROC: 02HV33Z Insertion of Infusion Device into Superior Vena Cava, Percutaneous Approach (ICD-10-PCS; 2018-02-09)
DX: C64.2 Malignant neoplasm of left kidney, except renal pelvis (principal); Z68.41 Body mass index [BMI] 40.0-44.9, adult; N17.9 Acute kidney failure, unspecified; T81.49XA Infection following a procedure, other surgical site, initial encounter; E87.1 Hypo-osmolality and hyponatremia; L03.311 Cellulitis of abdominal wall; E66.01 Morbid (severe) obesity due to excess calories; I10 Essential (primary) hypertension; K21.9 Gastro-esophageal reflux disease without esophagitis; G89.29 Other chronic pain; M19.90 Unspecified osteoarthritis, unspecified site; L25.9 Unspecified contact dermatitis, unspecified cause; L90.5 Scar conditions and fibrosis of skin; L98.8 Other specified disorders of the skin and subcutaneous tissue; B95.2 Enterococcus as the cause of diseases classified elsewhere; E87.6 Hypokalemia; B96.20 Unspecified Escherichia coli [E. coli] as the cause of diseases classified elsewhere; Z86.718 Personal history of other venous thrombosis and embolism; Z79.01 Long term (current) use of anticoagulants; N40.1 Benign prostatic hyperplasia with lower urinary tract symptoms; R39.14 Feeling of incomplete bladder emptying; R35.1 Nocturia; L91.8 Other hypertrophic disorders of the skin
CPT/HCPCS: 36415; 36569; 71045; 71046; 74018; 74177; 80048; 80053; 80202; 83735; 85025; 86850; 86870; 86880; 86900; 86905; 86920; 86922; 87071; 87186; 87205; 88304; 88307; 88329; 93005; 96361; 99001; J0690; J0692; J1100; J2001; J2150; J2175; J2250; J2270; J2370; J2405; J3370; J3480; J7030; J7050; Q9967

== ENCOUNTER → 2018-05-23 | Outpatient (CLI) | payer BC ==
[~2018-05-23] MED LIST changes: +BACTRIM DS TAB1 EACH PO; -MANNITOL 25% 12.5GM/50ML 50 ML ONE; +PENICILLIN VK PO; +TYLENOL WITH C1 EACH PO
--- NOTE | 2018-05-23 10:37 | Diagnostic Imaging Report ---
EXAMINATION: PA and lateral views of the chest. COMPARISON: Chest 2 views 02/10/2018 CLINICAL HISTORY: Malignant neoplasm of the left kidney DISCUSSION: Lines/tubes: None. Lungs: The lungs are well inflated and clear. There is no evidence of pneumonia or pulmonary edema. No nodules or masses. Pleura: There is no pleural effusion or pneumothorax. Heart and mediastinum: Stable mild enlargement of the cardiac silhouette. Pulmonary vasculature is normal. Bones and soft tissues: No acute bony abnormalities. Degenerative changes in the thoracic spine IMPRESSION: No acute cardiopulmonary abnormalities. Signed by: Dr. Navdeep Johnson M.D. on 05/23/2018 10:34 AM
--- NOTE | 2018-05-23 11:26 | Diagnostic Imaging Report ---
EXAM: Renal Ultrasound INDICATION: Left renal malignancy. COMPARISON: CT abdomen/pelvis 02/07/2018. TECHNIQUE: Transverse and longitudinal images of the kidneys and bladder were obtained. FINDINGS: Right Kidney: Length: Measures 15.5 x 6.1 x 7.3 cm Appearance: Normal echogenicity. Collecting system: No hydronephrosis Stones: None Cyst/Mass: None Left Kidney: Status post left nephrectomy. No evidence of mass within the nephrectomy bed. Bladder: Unremarkable in appearance. Right ureteral jet is seen. Prostate: Enlarged measuring up to 5.3 cm. Prostatic volume is 52.6 cc. IMPRESSION: Status post left nephrectomy without evidence of mass within the nephrectomy bed. Unremarkable right kidney. Signed by: Dr. Uvadlo Mortensen MD on 05/23/2018 11:23 AM
== END ==
LOC: US 09:54
PROVIDERS: ATTEND Urology
DX: C64.2 Malignant neoplasm of left kidney, except renal pelvis (principal)
CPT/HCPCS: 71046; 76770

== ENCOUNTER 2018-07-28 13:21 | Inpatient (IN) | payer BC ==
[~2018-07-28] VITALS: Ht 185.4 cm; Wt 167.8 kg
[2018-07-28] VITALS (7 sets, daily range): BP systolic 109–145; BP diastolic 65–88
--- NOTE | 2018-07-28 14:02 | NUR ---
AUTOMATIC CLIPPER AT BEDSIDE AT THIS TIME FOR EXAM.
[2018-07-28 14:20] LABS: BASOPHILS # (AUTO) 0.1 (0.0-0.1); BASOPHILS % 1.1 % (0.0-1.0); EOSINOPHILS # (AUTO) 0.5 (0.0-0.4); EOSINOPHILS % 4.1 % (0.0-6.0); HEMATOCRIT 39.5 % (38.2-49.6); HEMOGLOBIN 13.1 g/dL (14.0-18.0); LYMPHOCYTES # (AUTO) 2.3 (1.0-3.2); LYMPHOCYTES % 20.3 % (18.0-39.1); MEAN CORPUSCULAR HEMOGLOBIN 25.6 pg (28-32); MEAN CORPUSCULAR HGB CONC 33.2 g/dL (31-35); MEAN CORPUSCULAR VOLUME 77.1 fL (81-99); MONOCYTES # (AUTO) 0.9 (0.2-0.8); MONOCYTES % 8.2 % (4.4-11.3); NEUTROPHILS # (AUTO) 7.3 (2.1-6.9); NEUTROPHILS % 63.8 % (38.7-80.0); PLATELET COUNT 227 x10e3/uL (140-360); RED BLOOD COUNT 5.12 x10e6/uL (4.3-5.7); RED CELL DISTRIBUTION WIDTH 16.4 % (11.7-14.4)
[2018-07-28 14:29] LABS: INR 0.88; PARTIAL THROMBOPLASTIN TIME 29.8 seconds (23.8-35.5); PROTHROMBIN TIME 12.4 seconds (11.9-14.5)
[2018-07-28 14:37] LABS: ALBUMIN 3.3 g/dL (3.5-5.0); ALBUMIN/GLOBULIN RATIO 0.8 (0.8-2.0); ANION GAP 13.9 mmol/L (8-16); CALCIUM 9.4 mg/dL (8.4-10.2); CREATININE, SERUM 1.44 mg/dL (0.72-1.25); POTASSIUM 3.9 mmol/L (3.5-5.1)
[2018-07-28] MEDS ORDERED: ENOXAPARIN SODIUM INJ 100 MG/ML SYR SC ONE (15:00)
[2018-07-28] MEDS ORDERED: ONDANSETRON HCL INJ 2MG/ML 2ML 2 MG/ML VIAL IV PRN (15:30)
[2018-07-28] MEDS ORDERED: MORPHINE SULFATE INJ 4 MG/ML INJ 1ML IV PRN (15:30)
[2018-07-28] MEDS ORDERED: MORPHINE SULFATE 2 MG/ML SYR 1ML IV PRN (15:30)
[2018-07-28 16:04] LABS: CREATINE KINASE MB 2.1 ng/mL (0-5.0)
[2018-07-28 16:49] LABS: BLAST CELLS % MANUAL 1; EOSINOPHILS % (MANUAL) 8 % (0-7); LYMPHOCYTES % (MANUAL) 16 % (19-48); METAMYELOCYTES % (MANUAL) 3 % (0-0); MONOCYTES % (MANUAL) 5 % (3.4-9.0); NEUTROPHILS % (MANUAL) 62 % (40-74)
[2018-07-28 22:47] LABS: CREATINE KINASE MB 1.6 ng/mL (0-5.0)
[2018-07-29] VITALS (9 sets, daily range): BP systolic 107–129; BP diastolic 55–69
[2018-07-29] MEDS: ENOXAPARIN SODIUM INJ 100 MG/ML SYR SC SCH ×2 (03:09→15:27)
[2018-07-29 06:14] LABS: BASOPHILS # (AUTO) 0.1 (0.0-0.1); BASOPHILS % 0.8 % (0.0-1.0); EOSINOPHILS # (AUTO) 0.4 (0.0-0.4); EOSINOPHILS % 2.8 % (0.0-6.0); HEMOGLOBIN 12.1 g/dL (14.0-18.0); LYMPHOCYTES # (AUTO) 3.6 (1.0-3.2); LYMPHOCYTES % 25.6 % (18.0-39.1); MEAN CORPUSCULAR HEMOGLOBIN 25.1 pg (28-32); MEAN CORPUSCULAR HGB CONC 32.7 g/dL (31-35); MEAN CORPUSCULAR VOLUME 76.8 fL (81-99); MONOCYTES % 7.1 % (4.4-11.3); NEUTROPHILS # (AUTO) 8.7 (2.1-6.9); NEUTROPHILS % 61.6 % (38.7-80.0); PLATELET COUNT 231 x10e3/uL (140-360); RED BLOOD COUNT 4.82 x10e6/uL (4.3-5.7); RED CELL DISTRIBUTION WIDTH 16.6 % (11.7-14.4)
[2018-07-29 06:40] LABS: ALBUMIN 3.1 g/dL (3.5-5.0); ALBUMIN/GLOBULIN RATIO 0.7 (0.8-2.0); ANION GAP 12.5 mmol/L (8-16); CREATININE, SERUM 1.32 mg/dL (0.72-1.25); POTASSIUM 3.5 mmol/L (3.5-5.1)
[2018-07-29 06:50] LABS: CREATINE KINASE MB 2.3 ng/mL (0-5.0)
[2018-07-29] MEDS ORDERED: ACETAMINOPHEN/CODEINE 300MG - 30MG TAB PO PRN (09:00)
[2018-07-29] MEDS: VASCEPA 1 GM PO SCH ×2 (09:00→17:00)
[2018-07-29] MEDS: FAMOTIDINE 20 MG TAB PO SCH ×2 (09:40→16:30)
[2018-07-29] MEDS: TRIMETHOPRIM/SULFAMETHOXAZOLE 160-800 MG TAB PO SCH ×2 (09:40→20:56)
[2018-07-29] MEDS: LEVOTHYROXINE SODIUM 50 MCG TAB PO SCH (09:40)
[2018-07-29] MEDS ORDERED: WARFARIN SOD 5 MG TAB PO SCH (17:00)
--- NOTE | 2018-07-29 17:12 | Diagnostic Imaging Report ---
EXAM: VENTILATION PERFUSION LUNG SCAN INDICATION: DVT right leg; history of PE in 2010 post back surgery COMPARISON: No recent chest x-ray. DISCUSSION: Xenon-133 gas 10 mCi was administered via inhalation x 2 attempts. Patient could not adequately cooperate with breath hold. No interpretable ventilation images obtained. Perfusion images of the lungs in multiple projections were obtained following intravenous administration of 7.0 mCi of Tc-99m MAA. Distribution of tracer appears physiologic throughout the lungs. There are no segmental perfusion defects of any size. The contours of the lungs are well demarcated. The cardiac silhouette is mildly enlarged. IMPRESSION: 1. Normal perfusion lung scan. Scan findings represent a VERY LOW probability for acute pulmonary embolic disease based on the PIOPED II criteria. This probability would not be altered by a ventilation study. 2. Mildly enlarged cardiac silhouette. Signed by: Dr. Corrie Penaloza M.D. on 07/29/2018 5:09 PM
--- NOTE | 2018-07-29 18:25 | NUR ---
notified regarding D-Dimer results. No new orders given
--- NOTE | 2018-07-29 18:50 | NUR ---
Received report from previous nurse. Call light within reach. Patient in bed. Daughter at bedside. Addendum: 07/30/18 at 0128 by Daksha Chan RN Edit. Delete the part with "daughter at bedside." Patient is the only one in the room
[2018-07-29] MEDS: TAMSULOSIN HCL 0.4 MG CAP PO SCH (20:56)
[2018-07-29] MEDS: NEBIVOLOL 10 MG TAB PO SCH (20:56)
[2018-07-30] VITALS (8 sets, daily range): BP systolic 99–138; BP diastolic 21–69
[2018-07-30] MEDS: ENOXAPARIN SODIUM INJ 100 MG/ML SYR SC SCH ×2 (03:06→15:00)
[2018-07-30] MEDS: LEVOTHYROXINE SODIUM 50 MCG TAB PO SCH (05:50)
[2018-07-30] MEDS: FAMOTIDINE 20 MG TAB PO SCH ×2 (07:30→16:59)
--- NOTE | 2018-07-30 07:44 | NUR ---
GAVE REPORT TO ONCOMING NURSE. CALL LIGHT WITHIN REACH. PATIENT IN BED.
[2018-07-30] MEDS: VASCEPA 1 GM PO SCH ×2 (08:00→17:00)
[2018-07-30] MEDS: TRIMETHOPRIM/SULFAMETHOXAZOLE 160-800 MG TAB PO SCH ×2 (09:06→20:56)
--- NOTE | 2018-07-30 10:00 | NUR ---
Rounds by hematology/oncology and orders for consult to GI for colonoscopy d/t anemia. Spoke with Dr. Jennings and orders in place for NPO after midnight and to start GI series. Colonoscopy scheduled tomorrow at 13:30.
[2018-07-30] MEDS ORDERED: BISACODYL 5 MG TAB EC PO NR (10:30)
[2018-07-30] MEDS ORDERED: PEG (High)/E-LYTE SOLN 4,000 ML BTL PO NR (11:00)
--- NOTE | 2018-07-30 13:44 | Consultation ---
DATE OF CONSULTATION: 07/29/2018 HISTORY OF PRESENT ILLNESS: Oscar Foote is a 53-year-old white male referred to me for evaluation of left leg DVT. HISTORY OF PAST ILLNESSES: History of thrombophilia. The patient also has had a left radical nephrectomy for clear cell carcinoma on 02/04/2018. SOCIAL HISTORY: Noncontributory. FAMILY HISTORY: History of thrombophilia. ALLERGIES: REPORTED IBUPROFEN. MEDICATIONS: At this time: 1. Lovenox. 2. Ondansetron. 3. Flomax. 4. Pepcid. 5. Tylenol. 6. Septra. 7. Synthroid. REVIEW OF SYSTEMS: HEENT: Normal. CARDIAC: Normal. RESPIRATORY: Normal. GI: Normal. : Left radical nephrectomy on 02/04/2018. MUSCULOSKELETAL: History of left leg DVT. PHYSICAL EXAMINATION: GENERAL: A rather obese male. NECK: No palpable adenopathy. HEART: Within normal limits. LUNGS: Clear. ABDOMEN: Soft. RECTAL: Deferred. CENTRAL NERVOUS SYSTEM: Essentially normal. EXTREMITIES: Reveals swelling of the left lower extremity. LAB: Shows a hemoglobin of 12.1, hematocrit 37, low MCV of 76.8, high RDW of 16.6, and white count of 14,100. Sodium of 134, BUN 23, creatinine 1.44, albumin 3.1, and globulin slightly high at 4.2. IMPRESSION: 1. Anemia, iron deficiency. 2. Leukocytosis. 3. Hyponatremia. 4. Compromised renal functions. 5. Hypoalbuminemia. 6. Hyperglobulinemia. 7. Left radical nephrectomy for renal cell carcinoma, clear cell on 02/04/2018. 8. Deep vein thrombosis. 9. Hypothyroidism. 10. Thrombophilia. 11. Morbid obesity. 12. History of benign prostatic hypertrophy. PLAN, COMMENTS, AND SUGGESTIONS: Suggest stool for occult blood. Suggest D-dimer. Suggest V/Q scan. Suggest lifetime anticoagulation. Suggest quantitative immunoglobulins. Suggest colonoscopy. Since this patient is morbidly obese, the patient is suggested to be on Eliquis lifetime since it will be impossible to do a PT, INR. Also, suggest colonoscopy. Since Lovenox is long-acting between 8 to 12 hours, I suggest the Lovenox to be discontinued before [employer] work within 2 hours. I suggest a colonoscopy before he goes home since he is 53, since he has iron deficiency, and never had a colonoscopy. MD HAL Gunn/MJ /[id number] cc: MD Dr. Kat Arana
--- NOTE | 2018-07-30 14:30 | NUR ---
Patient started on GI series Golytely, and tolerating well
--- NOTE | 2018-07-30 17:34 | NUR ---
Patient on clear liquid diet, no c/o N/V, VSS, denies any pains and no adverse events, last dose Lovenox administered and will be held thereafter for colonoscopy tomorrow at 1330.
--- NOTE | 2018-07-30 17:52 | NUR ---
Called [facility] for reported and stated will call back
--- NOTE | 2018-07-30 18:16 | NUR ---
Report given to CLINTON Novoa and patient transferred to room 296 on [facility] via w/c a/ox4.
--- NOTE | 2018-07-30 18:35 | NUR ---
PATIENT ARRIVED ON THE UNIT AT 1818 PER WHEELCHAIR FROM ROOM 179. PATIENT IS IN STABLE CONDITION WITH NO S/S OF RESPIRATORY DISTRESS. PATIENT DENIES PAIN. ABD BINDER IN PLACE. VISITOR PRESENT IN ROOM. CALL LIGHT IS WITHIN REACH, PATIENT INFORMED TO CALL FOR ASSISTANCE NEEDED. PATIENT IS PREPARING FOR COLONOSCOPY FOR TOMORROW- PATIENT IS AWARE TO NOT FLUSH THE TOILET AND CALL STAFF TO ALLOW THEM TO SEE IF BM IS CLEARING.
--- NOTE | 2018-07-30 19:40 | NUR ---
PT IS RESTING IN BED. RESPIRATION IS EVEN AND UNLABORED, NO DISTRESS NOTED. BED IN THE LOWEST POSITION, LOCKED, AND CALL LIGHT WITHIN REACH. WILL CONTINUE TO MONITOR.
--- NOTE | 2018-07-30 19:43 | NUR ---
PATIENT IN STABLE CONDITION WITH NO S/S OF RESPIRATORY DISTRESS. NO PAIN VOICED. ABD BINDER APPLIED. PATIENT PREPARING FOR COLONOSCOPY FOR TOMORROW. CALL LIGHT IS WITHIN REACH, PATIENT INSTRUCTED TO CALL FOR ASSISTANCE NEEDED. BEDSIDE SHIFT REPORT GIVEN TO ONCOMING NURSE.
[2018-07-30] MEDS: TAMSULOSIN HCL 0.4 MG CAP PO SCH (20:56)
[2018-07-30] MEDS: NEBIVOLOL 10 MG TAB PO SCH (20:56)
[2018-07-31] VITALS (9 sets, daily range): BP systolic 114–136; BP diastolic 60–77
--- NOTE | 2018-07-31 02:32 | Consultation ---
DATE OF CONSULTATION: 07/30/2018 HISTORY OF PRESENT ILLNESS: This is a 53-year-old gentleman, who has a history of thrombophilia, has had left radical nephrectomy admitted to the hospital because of problems with iron deficiency anemia. The patient denies any abdominal pain. Denies any nausea or vomiting along with the problem. His workup so far revealed as the same, hemoglobin was 12.1 with MCV 76.8. PT/INR is normal. He also had V/Q scan, which was low probability. PAST MEDICAL HISTORY: His other medical problem is significant for history of thrombophilia, history of hyperlipidemia, history of DVT, history of hypothyroidism, BPH, renal cell carcinoma. MEDICATIONS: On admission including Pepcid, Bactrim, Synthroid, Flomax, Bystolic. He was on Lovenox, is on hold right now. ALLERGIES: NONE. SOCIAL HISTORY: No alcohol use. FAMILY HISTORY: Noncontributory. REVIEW OF SYSTEMS: Denies any chest pain or shortness of breath. Denies any dysphagia or odynophagia. Denies any dysuria, hematuria, or any kind of syncopal episode. PHYSICAL EXAMINATION: GENERAL: The patient is awake, alert, appears to be stable. VITAL SIGNS: Afebrile currently. HEAD, EYES, EARS, NOSE, AND THROAT: Normocephalic, atraumatic. Sclerae are anicteric. NECK: Supple. HEART: Regular. ABDOMEN: Soft. There is no distention at this point. EXTREMITIES: No cyanosis. No clubbing. LABORATORY VALUES: As of today, WBC of 14.16, hemoglobin of 12.1, MCV of 76.8. CMP, sodium 134. IMPRESSION: 1. Iron deficiency anemia. 2. Thrombophilia. 3. History of chronic renal disease. 4. History of deep venous thrombosis. RECOMMENDATION: Proceed with EGD and colonoscopy for further evaluation tomorrow. Follow labs and clinically. Hold Lovenox for now. MD SEUN Cyr/MJ /[id number] cc: MD Oscar Gunn MD
[2018-07-31] MEDS: LEVOTHYROXINE SODIUM 50 MCG TAB PO SCH (05:31)
[2018-07-31 05:47] LABS: BASOPHILS # (AUTO) 0.1 (0.0-0.1); BASOPHILS % 0.8 % (0.0-1.0); EOSINOPHILS # (AUTO) 0.3 (0.0-0.4); EOSINOPHILS % 1.6 % (0.0-6.0); HEMATOCRIT 39.9 % (38.2-49.6); HEMOGLOBIN 13.1 g/dL (14.0-18.0); LYMPHOCYTES # (AUTO) 4.1 (1.0-3.2); LYMPHOCYTES % 23.6 % (18.0-39.1); MEAN CORPUSCULAR HEMOGLOBIN 24.9 pg (28-32); MEAN CORPUSCULAR HGB CONC 32.8 g/dL (31-35); MEAN CORPUSCULAR VOLUME 75.9 fL (81-99); MONOCYTES # (AUTO) 1.2 (0.2-0.8); MONOCYTES % 6.9 % (4.4-11.3); NEUTROPHILS # (AUTO) 11.3 (2.1-6.9); NEUTROPHILS % 65.1 % (38.7-80.0); PLATELET COUNT 285 x10e3/uL (140-360); RED BLOOD COUNT 5.26 x10e6/uL (4.3-5.7); RED CELL DISTRIBUTION WIDTH 16.4 % (11.7-14.4)
[2018-07-31 06:33] LABS: ANION GAP 15.6 mmol/L (8-16); CALCIUM 9.8 mg/dL (8.4-10.2); CREATININE, SERUM 1.53 mg/dL (0.72-1.25); POTASSIUM 3.6 mmol/L (3.5-5.1)
--- NOTE | 2018-07-31 07:15 | NUR ---
PATIENT IS AWAKE AND IN STABLE CONDITION WITH NO S/S OF RESPIRATORY DISTRESS. NO PAIN VOICED.PATIENT REMAINS NPO FOR EGD/COLONOSCOPY TODAY. CALL LIGHT IS WITHIN REACH OF PATIENT- PATIENT INSTRUCTED TO CALL FOR ASSISTANCE NEEDED.
[2018-07-31] MEDS: FAMOTIDINE 20 MG TAB PO SCH ×2 (07:30→16:05)
[2018-07-31] MEDS: VASCEPA 1 GM PO SCH ×2 (07:48→16:05)
[2018-07-31] MEDS: TRIMETHOPRIM/SULFAMETHOXAZOLE 160-800 MG TAB PO SCH ×2 (09:00→21:44)
--- NOTE | 2018-07-31 13:45 | NUR ---
ROUNDED ON PATIENT- PATIENT IS OFF THE UNIT AT THIS TIME.
--- NOTE | 2018-07-31 14:34 | NUR ---
PATIENT BACK TO UNIT FROM PROCEDURE. HE IS IN STABLE CONDITION.
--- NOTE | 2018-07-31 14:38 | NUR ---
DISCUSSED PT IN ROUNDS, THIS PT TRANSFERRED IN AND PLAN IS TO RETURN HOME ON ELIQUIS, WILL GIVE COUPON FOR RESOURCE FOR FINANCIAL ASSISTANCE WITH PRESCRIPTION ASSISTANCE.
--- NOTE | 2018-07-31 14:39 | NUR ---
PATIENT BACK ON THE UNIT- PATIENT IS IN STABLE CONDITION WITH NO S/S OF RESPIRATORY DISTRESS. NO PAIN VOICED. CALL LIGHT IS WITHIN REACH, PATIENT INSTRUCTED TO CALL FOR ASSISTANCE NEEDED.
[2018-07-31] MEDS ORDERED: PROPOFOL IV EMULSION 10 MG/ML 50 ML VIAL ONE (17:07)
[2018-07-31] MEDS ORDERED: FENTANYL CITRATE/PF 100MCG/2 ML INJ ONE (17:34)
[2018-07-31] MEDS ORDERED: MIDAZOLAM HCL 2 MG/2 ML VIAL ONE (17:34)
--- NOTE | 2018-07-31 19:36 | NUR ---
PATIENT IS IN STABLE CONDITION WITH NO S/S OF RESPIRATORY DISTRESS. NO PAIN VOICED. ABD BINDER APPLIED. CALL LIGHT IS WITHIN REACH OF PATIENT, PATIENT INSTRUCTED TO CALL FOR ASSISTANCE NEEDED. BEDSIDE REPORT GIVEN TO ONCOMING NURSE.
[2018-07-31] MEDS: TAMSULOSIN HCL 0.4 MG CAP PO SCH (21:44)
[2018-07-31] MEDS: NEBIVOLOL 10 MG TAB PO SCH (21:44)
[2018-08-01 04:24] VITALS: BP 126/63
[2018-08-01] MEDS: LEVOTHYROXINE SODIUM 50 MCG TAB PO SCH (06:14)
[2018-08-01] MEDS: FAMOTIDINE 20 MG TAB PO SCH (07:30)
--- NOTE | 2018-08-01 07:30 | NUR ---
Received patient AAOx3, patient on room air, IV to the right AC 20 gauge dry and intact. Side rails up x2, call loo within reach, and bed in lowest position.
--- NOTE | 2018-08-01 07:30 | NUR ---
PATIENT REC'D AAOX3, ON ROOM AIR, NO S/S OF DISTRESS. IV TO RIGHT AC 20 GAUGE DRY AND INTACT. SIDE RAILS UP X2, CALL SHERIDAN WITHIN REACH, AND BED IN LOWEST POSITION.
[2018-08-01 08:00] VITALS: BP 136/60
[2018-08-01] MEDS: VASCEPA 1 GM PO SCH (08:00)
[2018-08-01] MEDS: TRIMETHOPRIM/SULFAMETHOXAZOLE 160-800 MG TAB PO SCH (08:10)
[2018-08-01 12:00] VITALS: BP 125/60
[2018-08-01 16:00] VITALS: BP 143/59
[2018-08-01] MEDS ORDERED: eliquis PO (16:57)
--- NOTE | 2018-08-01 17:20 | NUR ---
PATIENT DISCHARGED, IV HAS BEEN REMOVED FROM RIGHT AC WITH NO COMPLICATIONS. NO S/S OF DISTRESS. DISCHARGE PAPERS AND PRESCRIPTIONS HAVE BEEN GIVEN AND EXPLAINED. DISCHARGED VIA AMBULATING AND ESCORTED BY TECH.
--- NOTE | 2018-08-02 05:15 | Discharge Summary ---
FINAL DIAGNOSES: 1. Deep venous thrombosis of the right lower extremity on anticoagulant therapy. 2. Status post EGD and colonoscopy for microscopic anemia. The patient has gastritis, hiatal hernia, and diverticulosis. SUMMARY: The patient is a 53-year-old male, who has a left nephrectomy for renal cell carcinoma. The patient had that surgery back in January 2018, came in with right lower extremity DVT. The patient had started on anticoagulant therapy with Lovenox. He is now on Lovenox and Eliquis, will be going home. The patient is otherwise stable. Discussed with the patient at length. The patient will need anticoagulant therapy for the rest of his life. This is his recurrent DVT. He had DVT and pulmonary embolism in the past. His father also had blood clotting as well. The patient is otherwise stable at this time. Resume home medication Eliquis 5 mg twice a day. The patient to follow up on a closely basis with me and Dr. Hernandez as an outpatient. The patient is stable and discharged home today. Please review the MAR on discharge. MD SANDOR Arana/MJ /[id number]
--- NOTE | 2018-08-04 01:03 | Consultation ---
DATE OF CONSULTATION: 08/01/2018 Urology Consultation REASON FOR CONSULTATION: Followup of kidney cancer. HISTORY OF PRESENT ILLNESS: Oscar Foote is a 53-year-old man with a complicated urological history. The patient was found to have a left renal mass, underwent left partial nephrectomy with negative margins in 2011. Six years later, the patient had a local recurrence and underwent radical left nephrectomy in 2018, again with negative margins. The patient had some wound healing issues postoperatively, but his wound completely healed and resolved. The patient was admitted with right lower extremity swelling and was found to have a deep vein thrombosis. He does have a prior history of both deep vein thromboses as well as pulmonary embolism. Urological consultation was sought to due to the fact that the family bumped into me while I was making rounds and desired that I see the patient in followup. For past medical history, past surgical history, allergies, social history, and family history, please refer to prior notes in the hospital as well as in the office chart. REVIEW OF SYSTEMS: Discussed as above in history of present illness. Past medical history was negative for all other systems. MEDICATIONS: Please refer to the MAR. ALLERGIES: PLEASE REFER TO THE MAR. PHYSICAL EXAMINATION: GENERAL: Very pleasant 53-year-old man lying in bed, no apparent distress. He is currently afebrile. VITAL SIGNS: Currently stable. ABDOMEN: Soft, nondistended, nontender, obese without costovertebral angle tenderness. Kidneys not palpable, without hepatosplenomegaly. No obvious evidence of hernia. The patient has healed incision in the left flank. For the remaining physical examination systems, please refer to the admission history and physical in chart. LABORATORY STUDIES: White blood count 26037, hemoglobin 13.1, and platelets 285,000. The patient's creatinine is 1.53, sodium was low at 133. V/Q scan was low probability for deep vein thrombosis. ASSESSMENT: 1. Left renal cell carcinoma, status post partial followed by radical nephrectomy. 2. Leukocytosis. 3. Anemia. 4. Chronic renal insufficiency. 5. Hyponatremia. 6. Morbid obesity with family history of deep vein thrombosis and pulmonary embolism. PLAN: 1. Anticoagulation by the primary team. 2. I defer the hematological and electrolyte abnormalities to the primary team. 3. Does not seem to be any acute urological involvement nor issues that would require surgical intervention. 4. Informing the patient to maintain his currently scheduled followup. Thank you very much for involving us in the care of your patient. We will be happy to follow him along with you as well as an outpatient. MD DAO Roman/MJ /[id number]
== END 2018-08-01 17:52 | disposition home or self-care (01) | DRG 300 ==
LOC: ER 13:21 → ERHOLD 15:21 → IMCU 16:20 → OBSVTOIN 07-29 08:54 → MED/SURG3 07-30 18:26
PROVIDERS: ADMIT Internal Medicine; ATTEND Internal Medicine
PROC: 0DJD8ZZ Inspection of Lower Intestinal Tract, Via Natural or Artificial Opening Endoscopic (ICD-10-PCS; 2018-07-31)
PROC: 0DB38ZX Excision of Lower Esophagus, Via Natural or Artificial Opening Endoscopic, Diagnostic (ICD-10-PCS; principal; 2018-07-31 13:36)
PROC: 0DB78ZX Excision of Stomach, Pylorus, Via Natural or Artificial Opening Endoscopic, Diagnostic (ICD-10-PCS; 2018-07-31 13:36)
DX: I82.4Z1 Acute embolism and thrombosis of unspecified deep veins of right distal lower extremity (principal); E87.1 Hypo-osmolality and hyponatremia; Z68.42 Body mass index [BMI] 45.0-49.9, adult; K29.70 Gastritis, unspecified, without bleeding; K44.9 Diaphragmatic hernia without obstruction or gangrene; K57.90 Diverticulosis of intestine, part unspecified, without perforation or abscess without bleeding; E66.01 Morbid (severe) obesity due to excess calories; Z90.5 Acquired absence of kidney; D50.9 Iron deficiency anemia, unspecified; R77.1 Abnormality of globulin; E03.9 Hypothyroidism, unspecified; N40.0 Benign prostatic hyperplasia without lower urinary tract symptoms; E88.09 Other disorders of plasma-protein metabolism, not elsewhere classified; Z85.53 Personal history of malignant neoplasm of renal pelvis; I12.9 Hypertensive chronic kidney disease with stage 1 through stage 4 chronic kidney disease, or unspecified chronic kidney disease; N18.9 Chronic kidney disease, unspecified
CPT/HCPCS: 36415; 43239; 45378; 78582; 80048; 80053; 82550; 82553; 82784; 83880; 84484; 85025; 85379; 85610; 85730; 88305; 88312; 93306; 93971; 99284; A9540; A9558; G0378; J1650; J2250

== ENCOUNTER → 2018-09-01 | Outpatient (CLI) | payer BC ==
[~2018-09-01] MED LIST changes: +eliquis PO
--- NOTE | 2018-09-01 12:31 | Diagnostic Imaging Report ---
EXAMINATION: CHEST 2 VIEWS INDICATION: Known malignancy (left kidney) COMPARISON: Chest radiograph of 02/09/2018 FINDINGS: TUBES and LINES: Interval removal of previously seen right PICC line. LUNGS: The lungs are well inflated. No focal consolidation or pulmonary edema. There is a 7 mm nodular opacity at the right lung apex. PLEURA: No pleural effusion or pneumothorax. HEART AND MEDIASTINUM: Cardiomediastinal silhouette is stably enlarged. BONES AND SOFT TISSUES: No acute fracture or dislocation. Mild degenerative changes of the thoracic spine. UPPER ABDOMEN: No free air under the diaphragm. IMPRESSION: Right apical 7 mm nodular opacity is indeterminate. Chest CT can be considered for further evaluation in the setting of concern for metastatic disease. No focal pneumonia or pulmonary edema. Stable mild cardiomegaly. Signed by: Jose Shah MD on 09/01/2018 12:27 PM
--- NOTE | 2018-09-01 12:33 | Diagnostic Imaging Report ---
EXAM: Renal Ultrasound INDICATION: ^MALIG NEOP OF LT KIDNEY COMPARISON: None TECHNIQUE: Transverse and longitudinal images of the kidneys and bladder were obtained. FINDINGS: Right Kidney: Length: 16.1 cm Appearance: Normal echogenicity. Collecting system: No hydronephrosis Stones: None Cyst/Mass: None Left Kidney: Status post left nephrectomy in 2011. Bladder: No mass or wall thickening. Right ureteral jet seen. IMPRESSION: Status post left nephrectomy. No right hydronephrosis or renal mass. Signed by: Jose Shah MD on 09/01/2018 12:30 PM
== END ==
LOC: US 11:15
PROVIDERS: ATTEND Urology
DX: C64.2 Malignant neoplasm of left kidney, except renal pelvis (principal)
CPT/HCPCS: 71046; 76770

== ENCOUNTER → 2019-01-21 | Outpatient (CLI) | payer BC ==
--- NOTE | 2019-01-22 17:23 | Operative Report ---
DATE OF PROCEDURE: SURGEON: Aguila Mckoy MD STUDY: Doppler scan of lower extremity veins. This study is suboptimal with several areas not well visualized. These areas includes right mid femoral vein, bilateral distal femoral vein as well as bilateral proximal posterior tibial vein. In general, the veins appears to be compressible elsewhere except for a portion of the proximal greater saphenous vein, which shows partial compressibility. CONCLUSIONS: 1. Suboptimal study with several areas now well visualized. Deep venous thrombosis in these areas cannot be completely excluded. If clinically indicated, consider contrast angiography of the right leg. 2. Cannot exclude partial venous thrombosis involving the proximal right greater saphenous vein. 3. Poorly visualized areas includes the right mid femoral vein, bilateral distal femoral veins, and bilateral proximal posterior tibial veins. Aguila Mckoy MD MKJ/MODL /[id number] cc: Matthew Wise MD
== END ==
LOC: RAD 08:46
PROVIDERS: ATTEND Urology
DX: I82.493 Acute embolism and thrombosis of other specified deep vein of lower extremity, bilateral (principal)
CPT/HCPCS: 93970

== ENCOUNTER 2019-02-13 14:04 | Inpatient (IN) | payer BC ==
[2019-02-11 12:08] LABS: BASOPHILS # (AUTO) 0.1 (0.0-0.1); BASOPHILS % 0.9 % (0.0-1.0); EOSINOPHILS # (AUTO) 0.3 (0.0-0.4); EOSINOPHILS % 2.7 % (0.0-6.0); HEMATOCRIT 39.7 % (38.2-49.6); HEMOGLOBIN 12.1 g/dL (14.0-18.0); LYMPHOCYTES # (AUTO) 2.5 (1.0-3.2); LYMPHOCYTES % 20.9 % (18.0-39.1); MEAN CORPUSCULAR HEMOGLOBIN 24.3 pg (28-32); MEAN CORPUSCULAR HGB CONC 30.5 g/dL (31-35); MEAN CORPUSCULAR VOLUME 79.9 fL (81-99); MONOCYTES # (AUTO) 1.1 (0.2-0.8); MONOCYTES % 8.9 % (4.4-11.3); NEUTROPHILS # (AUTO) 7.6 (2.1-6.9); NEUTROPHILS % 64.7 % (38.7-80.0); PLATELET COUNT 220 x10e3/uL (140-360); RED BLOOD COUNT 4.97 x10e6/uL (4.3-5.7); RED CELL DISTRIBUTION WIDTH 17.2 % (11.7-14.4)
[2019-02-11 12:19] LABS: INR 0.92; PROTHROMBIN TIME 12.9 seconds (11.9-14.5)
[2019-02-11 12:20] LABS: PARTIAL THROMBOPLASTIN TIME 32.7 seconds (23.8-35.5)
[2019-02-11 12:28] LABS: ALBUMIN 3.1 g/dL (3.5-5.0); ALBUMIN/GLOBULIN RATIO 0.8 (0.8-2.0); ANION GAP 11.2 mmol/L (8-16); CALCIUM 8.9 mg/dL (8.4-10.2); CREATININE, SERUM 1.29 mg/dL (0.72-1.25); POTASSIUM 4.2 mmol/L (3.5-5.1)
[~2019-02-13] VITALS: Ht 185.4 cm; Wt 175.2 kg
[~2019-02-13 14:04] MED LIST changes: +DEXAMETHASONE SOD PHOS INJ 4 MG/ML VIAL ONE; +DEXILANT60 MG PO; +EPHEDRINE SULFATE INJ 50 MG/ML VIAL ONE; +LIDOCAINE HCL 2% JELLY 5 ML TUBE ONE; +LIDOCAINE HCL 2% LOCAL INJ 5 ML SDV VIAL INJ ONE; +MIDAZOLAM HCL 2 MG/2 ML VIAL ONE; +ONDANSETRON HCL INJ 2MG/ML 2ML 2 MG/ML VIAL ONE; +PROPOFOL IV EMULSION 10 MG/ML 20 ML VIAL ONE; +ROCURONIUM BROMIDE 10 MG/ML 5ML VIAL ONE; +SEVOFLURANE INHAL SOLN 250 ML PEN BTL ONE; +SUCCINYLCHOLINE CHLORIDE 20 MG/ML 10ML VIAL ONE
[2019-02-13] MEDS ORDERED: CLINDAMYCIN PHOS 900MG/ 50ML 50 ML IV ONE (14:54)
[2019-02-13] MEDS ORDERED: PIPERACILLIN/TAZO 4.5 GM 100 ML IV ONE (15:00)
[2019-02-13] MEDS ORDERED: BUPIVACAINE HCL 0.5% INJ 30 ML VIAL INJ ONE (15:31)
[2019-02-13] MEDS ORDERED: LIDOCAINE 2%/ EPINEPHRINE 20ML MDV ONE (15:58)
[2019-02-13] MEDS: D5.45%NS/KCL 20MEQ 1,000 ML IV SCH ×2 (16:35→23:52)
[2019-02-13] MEDS ORDERED: ONDANSETRON HCL INJ 2MG/ML 2ML 2 MG/ML VIAL IV PRN (16:45)
[2019-02-13] MEDS ORDERED: MORPHINE SULFATE 1 MG/ML 30ML PCA IV PRN (16:45)
[2019-02-13] MEDS ORDERED: NALOXONE HCL INJ 0.4 MG/ML AMP IV PRN (16:45)
[2019-02-13] MEDS ORDERED: ACETAMINOPHEN 1000 MG/100 ML IV PRN (16:45)
[2019-02-13] MEDS ORDERED: DIPHENHYDRAMINE HCL 25 MG CAP PO PRN (16:45)
[2019-02-13] MEDS ORDERED: HYDROGEN PEROXIDE 120 ML BTL ONE (17:48)
[2019-02-13] MEDS ORDERED: BACITRACIN 50,000 UNIT VIAL ONE (17:51)
[2019-02-13] MEDS ORDERED: MORPHINE SULFATE 1 MG/ML 30ML PCA ONE (20:07)
[2019-02-13 20:12] VITALS: BP 126/64
[2019-02-13] MEDS: DOCUSATE SODIUM 100 MG CAP PO SCH (22:00)
[2019-02-13] MEDS: CEFAZOLIN SOD 1 GM/NS 50ML 50 ML IV SCH (22:00)
[2019-02-14] VITALS (8 sets, daily range): BP systolic 110–126; BP diastolic 56–64
[2019-02-14] MEDS: PIPER-TAZ 3.375 GM 50 ML IV SCH ×3 (05:00→22:00)
[2019-02-14 05:29] LABS: BASOPHILS # (AUTO) 0.1 (0.0-0.1); BASOPHILS % 0.6 % (0.0-1.0); EOSINOPHILS # (AUTO) 0.2 (0.0-0.4); EOSINOPHILS % 1.7 % (0.0-6.0); HEMATOCRIT 36.4 % (38.2-49.6); HEMOGLOBIN 11.3 g/dL (14.0-18.0); LYMPHOCYTES # (AUTO) 2.6 (1.0-3.2); MEAN CORPUSCULAR HEMOGLOBIN 24.5 pg (28-32); MONOCYTES # (AUTO) 1.1 (0.2-0.8); MONOCYTES % 8.5 % (4.4-11.3); NEUTROPHILS # (AUTO) 8.9 (2.1-6.9); NEUTROPHILS % 67.6 % (38.7-80.0); PLATELET COUNT 209 x10e3/uL (140-360); RED BLOOD COUNT 4.61 x10e6/uL (4.3-5.7); RED CELL DISTRIBUTION WIDTH 17.7 % (11.7-14.4)
[2019-02-14 06:00] LABS: ANION GAP 13.9 mmol/L (8-16); CALCIUM 8.7 mg/dL (8.4-10.2); CREATININE, SERUM 1.46 mg/dL (0.72-1.25); POTASSIUM 3.9 mmol/L (3.5-5.1)
[2019-02-14] MEDS: CEFAZOLIN SOD 1 GM/NS 50ML 50 ML IV SCH (06:00)
[2019-02-14] MEDS ORDERED: CLINDAMYCIN 300MG 50 ML IV SCH (06:00)
--- NOTE | 2019-02-14 07:00 | NUR ---
BEDSIDE SHIFT REPORT RECEIVED FROM THE INFRASTRUCTURE DESIGN ENGINEER RN. EDUCATED PT ABOUT FALL PRECAUTIONS. CALL LIGHT WITH IN EASY REACH. INSTRUCTED PT TO USE CALL LIGHT FOR ALL THE NEEDS. PT VERBALIZED UNDERSTANDING. BED IS LOW AND LOCKED. SIDE RAILS X2. BED ALARM IS ON. PT DENIES NEEDS AT THIS TIME.
[2019-02-14] MEDS ORDERED: ONDANSETRON HCL INJ 2MG/ML 2ML 2 MG/ML VIAL IV PRN (08:30)
[2019-02-14] MEDS ORDERED: ACETAMINOPHEN 325 MG TAB PO PRN (08:30)
[2019-02-14] MEDS ORDERED: MORPHINE SULFATE INJ 4 MG/ML INJ 1ML IV PRN (08:30)
[2019-02-14] MEDS ORDERED: HYDROCODONE/APAP 10MG-325MG TAB PO PRN (08:30)
[2019-02-14] MEDS ORDERED: TAMSULOSIN HCL 0.4 MG CAP PEG SCH (09:00)
[2019-02-14] MEDS ORDERED: PANTOPRAZOLE SOD 40 MG TABEC PO SCH (09:00)
[2019-02-14] MEDS ORDERED: VALSARTAN 160 MG TAB PO ONE (09:00)
[2019-02-14] MEDS: TAMSULOSIN HCL 0.4 MG CAP PO SCH (09:33)
[2019-02-14] MEDS: DOCUSATE SODIUM 100 MG CAP PO SCH ×2 (09:33→17:43)
[2019-02-14] MEDS: LEVOTHYROXINE SODIUM 50 MCG TAB PO SCH (09:33)
[2019-02-14] MEDS ORDERED: SODIUM CHLORIDE 0.9% 250ML 250 ML ONE (14:36)
--- NOTE | 2019-02-14 19:00 | NUR ---
BEDSIDE SHIFT REPORT GIVEN TO THE UNION ORGANIZER RN. PT DENIED FURTHER NEEDS.
[2019-02-14] MEDS ORDERED: NEBIVOLOL 10 MG TAB PO SCH (21:00)
[2019-02-14] MEDS: NEBIVOLOL 10 MG TAB PO SCH (22:00)
--- NOTE | 2019-02-14 22:22 | NUR ---
SPOKE TO DR. RODRIGUEZ AT THIS TIME REGARDING PATIENT REQUEST FOR LOZENGES. NEW ORDER RECEIVED.
[2019-02-14] MEDS: CEPACOL SORE THROAT LOZENGES PO PRN (22:47)
[2019-02-15] VITALS (7 sets, daily range): BP systolic 122–144; BP diastolic 56–70
[2019-02-15] MEDS: PIPER-TAZ 3.375 GM 50 ML IV SCH (05:43)
[2019-02-15] MEDS: LEVOTHYROXINE SODIUM 50 MCG TAB PO SCH (05:46)
[2019-02-15] MEDS: VALSARTAN 160 MG TAB PO SCH ×2 (06:00→08:07)
[2019-02-15 06:03] LABS: BASOPHILS # (AUTO) 0.1 (0.0-0.1); BASOPHILS % 0.8 % (0.0-1.0); EOSINOPHILS # (AUTO) 0.3 (0.0-0.4); EOSINOPHILS % 2.8 % (0.0-6.0); HEMATOCRIT 36.9 % (38.2-49.6); HEMOGLOBIN 11.7 g/dL (14.0-18.0); LYMPHOCYTES # (AUTO) 2.6 (1.0-3.2); MEAN CORPUSCULAR HEMOGLOBIN 24.8 pg (28-32); MEAN CORPUSCULAR HGB CONC 31.7 g/dL (31-35); MEAN CORPUSCULAR VOLUME 78.3 fL (81-99); MONOCYTES # (AUTO) 1.3 (0.2-0.8); MONOCYTES % 10.2 % (4.4-11.3); NEUTROPHILS # (AUTO) 7.7 (2.1-6.9); NEUTROPHILS % 63.2 % (38.7-80.0); PLATELET COUNT 233 x10e3/uL (140-360); RED BLOOD COUNT 4.71 x10e6/uL (4.3-5.7); RED CELL DISTRIBUTION WIDTH 17.7 % (11.7-14.4)
[2019-02-15 06:29] LABS: ANION GAP 13.8 mmol/L (8-16); CALCIUM 8.9 mg/dL (8.4-10.2); CREATININE, SERUM 1.33 mg/dL (0.72-1.25); POTASSIUM 3.8 mmol/L (3.5-5.1)
--- NOTE | 2019-02-15 07:00 | NUR ---
RECEIVED PATIENT ASLEEP AT THIS TIME NO S/S OF DISTRESS. BED LOW, WHEELS LOCKED, SIDE RAILS X2. CALL LIGHT IN REACH WILL CONTINUE TO MONITOR PATIENT.
[2019-02-15] MEDS: DOCUSATE SODIUM 100 MG CAP PO SCH ×2 (08:13→18:12)
[2019-02-15] MEDS: TAMSULOSIN HCL 0.4 MG CAP PO SCH (08:13)
[2019-02-15] MEDS ORDERED: VANCOMYCIN 1GM/NS 250 ML 250 ML IV SCH ×2 (09:00→10:00)
[2019-02-15] MEDS ORDERED: CEFEPIME 2 GM/NS 0.9% 100 ML 100 ML IV SCH (09:00)
[2019-02-15] MEDS: CEFEPIME 2 GM/NS 0.9% 100 ML 100 ML IV SCH ×2 (12:32→23:45)
--- NOTE | 2019-02-15 12:50 | NUR ---
Visit made by the Spiritual Care Department Pastoral Visitor, Katelyn Mckeon. PV provided pastoral presence, prayer, hospitality, and supportive listening. Pastoral Visitor informed pt/family of the scope of [employer] and availability. CAMMIE GÓMEZ Technology Recruiter Spiritual Care Department O: [phone] Pager: [phone] ([phone] number calling from)
[2019-02-15] MEDS: VANCOMYCIN 1GM/NS 250 ML 250 ML IV SCH (13:10)
--- NOTE | 2019-02-15 17:37 | Consultation ---
DATE OF CONSULTATION: This is a patient of Dr. Krueger at [facility] in [place]. I would like to thank you for this kind of consult. HISTORY OF PRESENT ILLNESS: Mr. Foote is a pleasant 54-year-old gentleman, who has a history of renal cell carcinoma, status post radical nephrectomy on 02/03/2018. Per my discussion with the patient, he has been having problem with wound healing since then and now patient admitted for evaluation and treatment. The patient was seen by Dr. Wise, now status post revision of the surgical site with I and D of an abscess with 2 NICOLE drains. Wound culture showed Staph aureus, with identification and sensitivity pending. Also, the patient grew E coli that is pansensitive. Antibiotics were changed to vancomycin and cefepime. Infectious Disease consulted for possibility of outpatient IV antibiotics arrangements. PAST MEDICAL HISTORY: Includes renal cell carcinoma status post radical nephrectomy on the left, hypothyroidism, morbidly obese, hypertension, chronic pain syndrome. PAST SURGICAL HISTORY: As mentioned above status post left radical nephrectomy. SOCIAL HISTORY: No recent history of tobacco, alcohol, or ethanol. ALLERGIES: ALLERGIES NOTED. THE PATIENT IS ALLERGIC TO STATINS AND IBUPROFEN. LABORATORY DATA: White count 12.2, hemoglobin 11.7, platelet count of 17.7. Creatinine 1.33, sodium 133, potassium 3.8. Microbiology, wound growing E coli pansensitive and also Staph with sensitivity pending. E coli is pansensitive. RADIOLOGY: There are no new radiology studies available. REVIEW OF SYSTEMS: No nausea, vomiting, fever, chills, chest pain, shortness of breath, headache, dysuria, or polyuria. Pain is controlled. PHYSICAL EXAMINATION: GENERAL: Alert and oriented, comfortable in a chair. The patient is seen with the nurse in the room and a family member. VITAL SIGNS: Temperature is 98.1, pulse 80, respirations 19, blood pressure 144/70. CV: S1, S2. CHEST: Equal expansion. Clear to auscultation. No acute distress. ABDOMEN: Soft, obese, nontender. HEENT: Moist, no pallor. No JVD. EXTREMITIES: Edema. Left flank with toribio also with 2 NICOLE drains. The wound seems to be clean. No erythema, no acute distress found. The patient is overall morbidly obese. ASSESSMENT AND PLAN: Status post revision and incision and drainage of the abscess by urologist on the left flank at the site of nephrectomy. Abscess was in the retroperitoneal area in a patient with history of hypothyroidism and hypertension with a history of deep venous thrombosis and pulmonary embolism. Wound has been having difficulties in healing since the original surgery site was revised and currently on vancomycin and cefepime. The patient's GFR is 51-58. We tried to sit up the patient in the office of Dr. Zamudio. IV antibiotics. Further management of this patient is based on further findings on laboratory and physical exam. Thank you for this kind consult. This case was discussed with Dr. Zamudio in detail. Further management of this patient is based on daily finding on laboratory and physical examination. Thank you for this consult. Thank you, Dr. Krueger. Dictated by Miles Chavira PA-C (Al) Margaret Zamudio MD /MODL /[id number] cc: Miles Chavira PA-C (Al)
--- NOTE | 2019-02-15 18:15 | NUR ---
EMPTIED 30 ML FROM NICOLE DRAIN 1 AND 10 ML FROM NICOLE DRAIN 2.
--- NOTE | 2019-02-15 18:35 | NUR ---
CONSENT SIGNED BY PATIENT FOR PICC LINE INSERTION AND PLACED IN PATIENTS CHART.
--- NOTE | 2019-02-15 20:13 | Diagnostic Imaging Report ---
EXAMINATION: CHEST XRAY LINE PLACEMENT INDICATION: ^PICC LINE ^[id number] ^[id number] COMPARISON: 12/10/2018 FINDINGS: AP view TUBES and LINES: Right PICC in place with tip projecting over inferior SVC. Mild central vascular congestion. LUNGS: Lungs are well inflated. There is no evidence of pneumonia or pulmonary edema. PLEURA: No pleural effusion or pneumothorax. HEART AND MEDIASTINUM: The cardiomediastinal silhouette is mildly enlarged. BONES AND SOFT TISSUES: No acute osseous lesion. Soft tissues are unremarkable. UPPER ABDOMEN: No free air under the diaphragm. IMPRESSION: Right PICC in place with tip projecting over inferior SVC. No visible pneumothorax. Signed by: Dr. Salvatore Wheeler MD on 02/15/2019 8:10 PM
--- NOTE | 2019-02-15 20:16 | NUR ---
Picc tip is in the inferior SVC per radiology report by Dr Wheeler. PICC is OK to use
[2019-02-15] MEDS: NEBIVOLOL 10 MG TAB PO SCH (21:36)
[2019-02-15] MEDS: CEPACOL SORE THROAT LOZENGES PO PRN (23:46)
[2019-02-16] VITALS: BP_SYST 117; BP_SYST 143; BP_DIAS 62; BP_DIAS 70
[2019-02-16] MEDS: CEFEPIME 2 GM/NS 0.9% 100 ML 100 ML IV SCH ×2 (00:30→12:14)
[2019-02-16 04:00] VITALS: BP 114/57
[2019-02-16] MEDS: LEVOTHYROXINE SODIUM 50 MCG TAB PO SCH (05:23)
[2019-02-16 05:56] LABS: BASOPHILS # (AUTO) 0.1 (0.0-0.1); BASOPHILS % 0.9 % (0.0-1.0); EOSINOPHILS # (AUTO) 0.4 (0.0-0.4); EOSINOPHILS % 3.8 % (0.0-6.0); HEMATOCRIT 36.2 % (38.2-49.6); HEMOGLOBIN 11.4 g/dL (14.0-18.0); LYMPHOCYTES # (AUTO) 2.7 (1.0-3.2); LYMPHOCYTES % 23.5 % (18.0-39.1); MEAN CORPUSCULAR HEMOGLOBIN 24.8 pg (28-32); MEAN CORPUSCULAR HGB CONC 31.5 g/dL (31-35); MEAN CORPUSCULAR VOLUME 78.7 fL (81-99); MONOCYTES % 8.6 % (4.4-11.3); NEUTROPHILS # (AUTO) 7.1 (2.1-6.9); NEUTROPHILS % 61.3 % (38.7-80.0); PLATELET COUNT 227 x10e3/uL (140-360); RED CELL DISTRIBUTION WIDTH 17.4 % (11.7-14.4)
[2019-02-16 06:15] LABS: ANION GAP 12.8 mmol/L (8-16); CALCIUM 9.1 mg/dL (8.4-10.2); CREATININE, SERUM 1.35 mg/dL (0.72-1.25); POTASSIUM 3.8 mmol/L (3.5-5.1)
[2019-02-16] MEDS ORDERED: ONDANSETRON HCL 4 MG ORAL DISINTEGRATING TAB PO PRN (06:45)
--- NOTE | 2019-02-16 07:00 | NUR ---
RECEIVED PATIENT ASLEEP AT THIS TIME NO S/S OF DISTRESS. BED LOW, WHEELS LOCKED, SIDE RAILS X2. CALL LIGHT IN REACH WILL CONTINUE TO MONITOR PATIENT.
[2019-02-16 08:00] VITALS: BP 139/75
[2019-02-16 08:24] VITALS: BP 139/75
[2019-02-16] MEDS: DOCUSATE SODIUM 100 MG CAP PO SCH (08:24)
[2019-02-16] MEDS: VALSARTAN 160 MG TAB PO SCH (08:24)
[2019-02-16] MEDS: TAMSULOSIN HCL 0.4 MG CAP PO SCH (08:24)
[2019-02-16] MEDS ORDERED: APIXABAN 5 MG TABLET PO SCH (09:00)
[2019-02-16 11:27] VITALS: BP 140/70
[2019-02-16] MEDS: VANCOMYCIN 1GM/NS 250 ML 250 ML IV SCH (12:47)
--- NOTE | 2019-02-16 12:59 | NUR ---
PATIENT CLEARED BY DR. OLIVA FOR DISCHARGE.
[2019-02-16] MEDS ORDERED: TYLENOL WITH C1 EACH PO (13:41)
--- NOTE | 2019-02-16 14:35 | NUR ---
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 MD does not want patient to miss doses. CM to follow tmrw.
--- NOTE | 2019-02-16 14:45 | NUR ---
SPOKE WITH RAÚL WHITLEY [employer]LE PET GROOMER. IV ANTIBIOTICS SET UP, PATIENT IS OK TO DISCHARGE.
--- NOTE | 2019-02-16 14:46 | NUR ---
Edna with Dr. Zamudio's infusion clinic called Mr. Foote and told him to come to clinic for teaching today. Call and spoke to Edna in patient's room at Dr Zamudio[facility] infusion clinic [phone], who states patient to be seen between 330 and 4 with her at clinic for teaching and IV abx will be delivered to his home after 4 pm. Notified Hermila ALONZO. Patient to [place] today.
--- NOTE | 2019-02-16 14:50 | NUR ---
SPOKE WITH DR. RODRIGUEZ, PATIENT OK TO DISCHARGE.
--- NOTE | 2019-02-16 15:00 | NUR ---
REMOVED PATIENTS IV, CATHETER TIP INTACT AND PRESSURE DRESSING APPLIED.
--- NOTE | 2019-02-16 15:15 | NUR ---
PATIENT DISCHARGED FROM FACILITY. PATIENT GATHERED ALL PERSONAL BELONGINGS, DISCHARGE INSTRUCTIONS, AND FOLLOW UP INFORMATION. PATIENT LEFT UNIT IN WHEELCHAIR AND WENT HOME VIA PRIVATE AUTO. NO SIGNS OF DISTRESS LEAVING FACILITY.
--- NOTE | 2019-04-07 06:02 | Operative Report ---
DATE OF PROCEDURE: 02/13/2019 SURGEON: Matthew Wise MD PREOPERATIVE DIAGNOSIS: Draining left flank wound. POSTOPERATIVE DIAGNOSES: 1. Draining left flank wound. 2. Left retroperitoneal abscess. OPERATIONS PERFORMED: 1. Incision and drainage of left retroperitoneal perinephric abscess. 2. Excision of sinus tract. 3. Complex repair of complicated wound in a morbidly obese patient with total length of wound 15 cm. COMMUNITY LIAISON OFFICER: Krystal Wise MD. ANESTHESIA: General. COMPLICATIONS: None. CLINICAL SUMMARY: Oscar Foote is a 54-year-old man, who is very complicated. He underwent partial nephrectomy several years later. Two cancer recurred in the same kidney and then he underwent a radical nephrectomy. Following this procedure, the patient had recurrent drainage from his wound. Several times we planned on exploring it and correcting it. However, it stopped draining and then the patient deferred surgical management. The patient has now had persistently draining sinus tract and is brought for the above procedures. He is aware of the risks of bleeding, infection, injury to adjacent structures, need for additional procedures and elected to proceed. OPERATIVE PROCEDURE IN DETAIL: Informed consent was verified. Oscar Foote was properly identified, taken to the operating room, placed on the operating table in supine position. Anesthesia was uneventfully begun. The patient was then carefully and gently repositioned in a flank position with all pressure points well padded. His chest and abdomen and back were prepared and draped in usual sterile fashion. A circumscribing incision was then made of the posterior portion of this very large flank wound. This was carried down to the level of the fascia. We identified the sinus tract. The sinus tract appeared to cross the fascia. We followed the sinus tract as we dissected down to the retroperitoneal space. There we found an abscess cavity. We broke up all loculations. We sent cultures and we were able to fully cleaned out. Through a separate stab wound, a Richard drain was then placed into the cavity and secured so that it would continue to drain the cavity with an absorbable suture. It was secured to the skin with a nylon suture. Copious irrigation was performed. We then undermined flaps of skin in performing a complex closure of greater than 15 cm of total wound length. The closure was made in layers utilizing heavy Vicryl suture in interrupted [id number] fashion for the fascia and then very subcutaneous levels were approximated with heavy Vicryl suture as well. A separate Richard drain was then placed through a separate stab incision secured to the skin with nylon sutures to drain the subcutaneous space. We approximated the skin with skin toribio. The patient was then uneventfully reversed from anesthesia and taken to recovery room in stable condition. There were no complications to the procedure. He tolerated the procedure well. We will plan to proceed with hospitalization for intravenous antibiotics and wound care and drain management. MD DAO Roman/MJ /[id number]
== END 2019-02-16 15:15 | disposition home or self-care (01) | DRG 857 ==
LOC: OR 14:04 → PACU V 20:15 → MED/SURG 21:16
PROVIDERS: ADMIT Internal Medicine; ATTEND Internal Medicine
PROC: 0JQ80ZZ Repair Abdomen Subcutaneous Tissue and Fascia, Open Approach (ICD-10-PCS; 2019-02-13)
PROC: 0W9H00Z Drainage of Retroperitoneum with Drainage Device, Open Approach (ICD-10-PCS; principal; 2019-02-13 16:36)
PROC: 02HV33Z Insertion of Infusion Device into Superior Vena Cava, Percutaneous Approach (ICD-10-PCS; 2019-02-15)
PROC: B548ZZA Ultrasonography of Superior Vena Cava, Guidance (ICD-10-PCS; 2019-02-15)
DX: K68.11 Postprocedural retroperitoneal abscess (principal); Z68.43 Body mass index [BMI] 50.0-59.9, adult; Z90.5 Acquired absence of kidney; Z86.718 Personal history of other venous thrombosis and embolism; E78.5 Hyperlipidemia, unspecified; E03.9 Hypothyroidism, unspecified; B96.20 Unspecified Escherichia coli [E. coli] as the cause of diseases classified elsewhere; E66.01 Morbid (severe) obesity due to excess calories; Z85.528 Personal history of other malignant neoplasm of kidney; N18.9 Chronic kidney disease, unspecified; B95.61 Methicillin susceptible Staphylococcus aureus infection as the cause of diseases classified elsewhere; I12.9 Hypertensive chronic kidney disease with stage 1 through stage 4 chronic kidney disease, or unspecified chronic kidney disease
CPT/HCPCS: 36415; 36569; 71045; 80048; 80053; 85025; 85610; 85730; 87071; 87075; 87186; 87205; 88304; 93005; J0330; J0690; J1100; J2001; J2250; J2270; J2405; J2543; J3370; J7050

== ENCOUNTER → 2019-08-21 | Outpatient (CLI) | payer BC ==
[~2019-08-21] MED LIST changes: -DEXAMETHASONE SOD PHOS INJ 4 MG/ML VIAL ONE; -EPHEDRINE SULFATE INJ 50 MG/ML VIAL ONE; -LIDOCAINE HCL 2% JELLY 5 ML TUBE ONE; -LIDOCAINE HCL 2% LOCAL INJ 5 ML SDV VIAL INJ ONE; -MIDAZOLAM HCL 2 MG/2 ML VIAL ONE; -ONDANSETRON HCL INJ 2MG/ML 2ML 2 MG/ML VIAL ONE; -PROPOFOL IV EMULSION 10 MG/ML 20 ML VIAL ONE; -ROCURONIUM BROMIDE 10 MG/ML 5ML VIAL ONE; -SEVOFLURANE INHAL SOLN 250 ML PEN BTL ONE; -SUCCINYLCHOLINE CHLORIDE 20 MG/ML 10ML VIAL ONE
--- NOTE | 2019-08-21 15:19 | Diagnostic Imaging Report ---
Exam: KUB - 2 views Indication: Renal malignancy Comparison: CT abdomen of 03/11/2019 Findings: Surgical clips overlie the left abdomen and correspond with known prior left nephrectomy. No radiographically apparent urinary calculi. Nonobstructive bowel gas pattern. No free air. No acute osseous injury. Partially visualized lung bases are clear. Impression: Status post left rectum he. No radiographically apparent urinary calculi. Signed by: Jose Shah MD on 08/21/2019 3:15 PM
--- NOTE | 2019-08-21 16:39 | Diagnostic Imaging Report ---
EXAM: Renal Ultrasound INDICATION: ^[id number] ^[id number] ^MALIGNANT NEOPLASM OF KIDNEY COMPARISON: CT abdomen of 03/11/2019 TECHNIQUE: Transverse and longitudinal images of the kidneys and bladder were obtained. FINDINGS: Right Kidney: Length: 14.0 cm Appearance: Normal echogenicity. Collecting system: No hydronephrosis Stones: None Cyst/Mass: None Left Kidney: Status post left nephrectomy. Bladder: No mass or calculi. Right ureteral jet visualized. Prevoid volume estimate of 29 cc. The prostate measures 3.8 x 2.7 x 3.9 cm with volume estimate of 21 cc. IMPRESSION: Status post left nephrectomy. No suspicious sonographic findings in the nephrectomy bed. No hydronephrosis or renal calculus of the right kidney. Signed by: Jose Shah MD on 08/21/2019 4:35 PM
== END ==
LOC: US 14:43
PROVIDERS: ATTEND Urology
DX: C64.2 Malignant neoplasm of left kidney, except renal pelvis (principal)
CPT/HCPCS: 74018; 76770

== ENCOUNTER → 2019-11-18 | Outpatient (CLI) | payer BC ==
--- NOTE | 2019-11-18 10:59 | Diagnostic Imaging Report ---
EXAMINATION: CHEST 2 VIEWS INDICATION: Renal malignancy COMPARISON: Chest radiograph 02/15/2019 FINDINGS: LINES/TUBES:None LUNGS:The lungs are well-inflated. No focal consolidation or pulmonary edema. PLEURA:No pleural effusion or pneumothorax. MEDIASTINUM:The cardiomediastinal silhouette appears normal in size and shape. BONES/SOFT TISSUES:No acute osseous injury. ABDOMEN:No free air under the diaphragm. IMPRESSION: No focal pneumonia or pulmonary edema. No radiographically apparent pulmonary nodule. Signed by: Jose Shah MD on 11/18/2019 10:56 AM
--- NOTE | 2019-11-18 11:11 | Diagnostic Imaging Report ---
EXAM: Renal Ultrasound INDICATION: ^[id number] ^[id number] ^MALIGNANT NEOPLASM OF LEFT KIDNEY COMPARISON: Renal ultrasound most recently 12/10/2018 TECHNIQUE: Transverse and longitudinal images of the kidneys and bladder were obtained. FINDINGS: Right Kidney: Length: 14.8 cm Appearance: Normal echogenicity. Collecting system: No hydronephrosis Stones: None Cyst/Mass: None Left Kidney: Status post left nephrectomy. No suspicious findings in the nephrectomy bed. Bladder: No mass or calculi. Right ureteral jet not well visualized. Bladder volume estimate of 38 cc. Increased echogenicity of liver parenchyma consistent with hepatic steatosis. IMPRESSION: Status post left nephrectomy. Normal appearance of right kidney. Hepatic steatosis. Signed by: Jose Shah MD on 11/18/2019 11:07 AM
== END ==
LOC: US 10:16
PROVIDERS: ATTEND Urology
DX: C64.2 Malignant neoplasm of left kidney, except renal pelvis (principal)
CPT/HCPCS: 71046; 76770